=== PATIENT | female | born 1975 | race Caucasian/White ===

== ENCOUNTER 2016-10-13 13:14 | Emergency (ER) | payer OTHER ==
[2016-10-13 13:50] VITALS: BP 119/70; PULSE 79; RESP 20; TEMP 98.7
--- NOTE | 2016-10-13 14:29 | ED ---
General Adult HPI - General Chief complaint: Urogenital Stated complaint: Vaginal Spotting Time Seen by Provider: 10/13/16 14:16 Source: patient, RN notes reviewed Mode of arrival: ambulatory Limitations: no limitations - History of Present Illness Initial comments: Patient 41-year-old female who presents emergency room today with a chief complaint of vaginal discharge with some bleeding mixed in over the last 2 days. She does admit to increased vaginal your dictation. Patient does admit to a new sexual partner and is worried about possible STD. Patient does admit to some slight dysuria today with increased irritation. She denies any other complaints or associated symptoms. Patient denies any recent fever, chills, shortness of breath, chest pain, back pain, nausea or vomiting, numbness or tingling, dysuria or hematuria, constipation or diarrhea, headaches or visual changes, or any other complaints. - Related Data Home Medications Medication Instructions Recorded Confirmed No Known Home Medications [No 10/13/16 10/13/16 Known Home Medications] Allergies Allergy/AdvReac Type Severity Reaction Status Date / Time No Known Allergies Allergy Verified 10/13/16 14:42 Review of Systems ROS Statement: Those systems with pertinent positive or pertinent negative responses have been documented in the HPI. ROS Other: All systems not noted in ROS Statement are negative. Past Medical History Past Medical History: No Reported History History of Any Multi-Drug Resistant Organisms: None Reported Past Surgical History: Orthopedic Surgery Additional Past Surgical History / Comment(s): right ovary removal, rib removal Past Psychological History: No Psychological Hx Reported Smoking Status: Current every day smoker Past Alcohol Use History: Occasional Past Drug Use History: None Reported General Exam - General Exam Comments Initial Comments: General: The patient is awake and alert, in no distress, and does not appear acutely ill. Eye: Pupils are equal, round and reactive to light, extra-ocular movements are intact. No nystagmus. There is normal conjunctiva bilaterally. No signs of icterus. Ears, nose, mouth and throat: There are moist mucous membranes and no oral lesions. Neck: The neck is supple, there is no tenderness or JVD. Cardiovascular: There is a regular rate and rhythm. No murmur, rub or gallop is appreciated. Respiratory: Lungs are clear to auscultation, respirations are non-labored, breath sounds are equal. No wheezes, stridor, rales, or rhonchi. Gastrointestinal: Soft, non-distended, non-tender abdomen without masses or organomegaly noted. There is no rebound or guarding present. No CVA tenderness. Bowel sounds are unremarkable. Musculoskeletal: Normal ROM, no tenderness. Strength 5/5. Sensation intact. Pulses equal bilaterally 2+. Neurological: A&O x 3. CN II-XII intact, There are no obvious motor or sensory deficits. Coordination appears grossly intact. Speech is normal. Skin: Skin is warm and dry and no rashes or lesions are noted. Psychiatric: Cooperative, appropriate mood & affect, normal judgment. Limitations: no limitations External exam: Present: normal external exam (TRANSPORTATION MAINTENANCE OPERATORBRENT Felton present for exam) Speculum exam: Present: normal speculum exam, vaginal bleeding (Small amount of blood on the swabs) By manual exam: Present: normal by manual exam. Absent: cervical motion tenderness, adnexal tenderness, adnexal mass Course Vital Signs 10/13/16 13:47 Temperature 98.7 F Pulse Rate 79 Respiratory 20 Rate Blood Pressure 119/70 O2 Sat by Pulse 100 Oximetry Medical Decision Making - Medical Decision Making Options of prophylactic treatment were discussed with the patient here the emergency room. Patient has declined. Patient will be discharged home. Advised to follow CARPET CLEANING TECHNICIAN. Advised return if any symptoms increase or worsen. - Lab Data Lab Results 10/13/16 10/13/16 10/13/16 Range/Units 14:40 14:40 14:40 Urine Color Yellow Urine Appearance Cloudy H (Clear) Urine pH 7.5 (5.0-8.0) Ur Specific [place] 1.023 (1.001-1.035) Urine Protein Trace H (Negative) Urine Glucose (UA) Negative (Negative) Urine Ketones Negative (Negative) Urine Blood Moderate H (Negative) Urine Nitrate Negative (Negative) Urine Bilirubin Negative (Negative) Urine Urobilinogen 4.0 (<2.0) mg/dL Ur Leukocyte Esterase Large H (Negative) Urine RBC 18 H (0-5) /hpf Urine WBC 4 (0-5) /hpf Ur Squamous Epith Cells 6 H (0-4) /hpf Urine Bacteria Occasional H (None) /hpf Urine Mucus Rare H (None) /hpf Urine HCG, Qual Not Detected (Not Detectd) Trichomonas Ag (Rapid) Negative (Negative) Disposition Clinical Impression: Vaginal discharge Disposition: HOME SELF-CARE Condition: Good Instructions: Vaginal Discharge (ED) Additional Instructions: Please follow-up with CARPET CLEANING TECHNICIAN for symptoms over the next 2-5 days as discussed. Please return here to the emergency room if any symptoms increase or worsen or for any other concerns. Time of Disposition: 15:28
[2016-10-13 15:10] LABS: Appearance,Urine Cloudy (Clear); Bacteria,Urine Occasional /hpf; Bilirubin,Urine Negative (Negative); Glucose,Urine (UA) Negative (Negative); Ketones,Urine Negative (Negative); Leukocyte Esterase,Urine Large (Negative); Mucus,Urine Rare /hpf; Nitrite,Urine Negative (Negative); PH, Urine 7.5 (5.0-8.0); Particle Count 13870; Protein,Urine Trace (Negative); RBC,Urine 18 /hpf (0-5); Specific Gravity,Urine 1.023 (1.001-1.035); Squamous Epithelial Cell,Urine 6 /hpf (0-4); UA Billing (MACRO vs. MICRO) MICRO; WBC,Urine 4 /hpf (0-5)
== END 2016-10-13 15:35 | disposition home or self-care (01) ==
LOC: EC 13:14
DX: N89.8 Other specified noninflammatory disorders of vagina (principal); F17.200 Nicotine dependence, unspecified, uncomplicated
CPT/HCPCS: 81001; 81025; 87070; 87086; 87205; 87491; 87591; 87808; 99283

== ENCOUNTER 2022-01-23 07:42 | Inpatient (IN) | payer MEDICAID, OTHER ==
--- NOTE | 2022-01-23 11:52 | ED ---
Psych HPI - General Chief Complaint: Psychiatric Symptoms Stated Complaint: mental health Time Seen by Provider: 01/23/22 07:42 Source: family, EMS, RN notes reviewed - History of Present Illness Initial Comments: 47-year-old female brought in by EMS today because of abnormal behavior she apparently told family members she felt she was being poisoned 15. Paranoid calling family members she was present in the [place] this apparently started last night. No known prior history of any psychiatric disorders no known consumption of drugs or alcohol. No trauma reported. MD Complaint: other - Related Data Home Medications Medication Instructions Recorded Confirmed No Known Home Medications 10/13/16 01/23/22 Allergies Allergy/AdvReac Type Severity Reaction Status Date / Time No Known Allergies Allergy Verified 01/23/22 11:52 Review of Systems ROS Statement: Those systems with pertinent positive or pertinent negative responses have been documented in the HPI. ROS Other: All systems not noted in ROS Statement are negative. Limitations: ROS unobtainable due to patients medical condition Past Medical History Past Medical History: No Reported History History of Any Multi-Drug Resistant Organisms: None Reported Past Surgical History: Orthopedic Surgery Additional Past Surgical History / Comment(s): right ovary removal, rib removal Past Psychological History: No Psychological Hx Reported Past Alcohol Use History: Occasional Past Drug Use History: None Reported General Exam - General Exam Comments Initial Comments: This is a well-developed well-nourished awake female she is resisting interview and will not answer questions Limitations: altered mental status General appearance: alert, anxious Head exam: Present: atraumatic, normocephalic, normal inspection Eye exam: Present: normal appearance, PERRL, EOMI. Absent: scleral icterus, conjunctival injection, periorbital swelling ENT exam: Present: normal exam Neck exam: Present: normal inspection, full ROM, other (No stridor JVD or bruits) Respiratory exam: Present: normal lung sounds bilaterally. Absent: respiratory distress, wheezes, rales, rhonchi, stridor Cardiovascular Exam: Present: normal rhythm, tachycardia, normal heart sounds. Absent: systolic murmur, diastolic murmur, rubs, gallop, clicks GI/Abdominal exam: Present: soft Extremities exam: Present: normal inspection, full ROM, normal capillary refill. Absent: tenderness, pedal edema, joint swelling, calf tenderness Back exam: Present: normal inspection, full ROM Neurological exam: Present: alert Psychiatric exam: Present: agitated, anxious, other (Psychotic features) Skin exam: Present: warm, dry, intact, normal color. Absent: rash Course Vital Signs 01/23/22 07:47 Pulse Rate 111 H Respiratory 24 Rate Blood Pressure 173/74 O2 Sat by Pulse 100 Oximetry - Reevaluation(s) Reevaluation #1: 01/23/22 12:48 I did fill out a clinical certification on this patient. Medical Decision Making - Medical Decision Making Patient was evaluated by the EPS service labs are drawn and her essentially within normal limits. Patient will be admitted for inpatient evaluation and treatment - Lab Data Result diagrams: 01/23/22 12:42 01/23/22 12:42 Lab Results 01/23/22 01/23/22 Range/Units 12:42 12:42 WBC 7.7 (3.8-10.6) k/uL RBC 4.88 (3.80-5.40) m/uL Hgb 13.9 (11.4-16.0) gm/dL Hct 43.9 (34.0-46.0) % MCV 90.0 (80.0-100.0) fL MCH 28.5 (25.0-35.0) pg MCHC 31.6 (31.0-37.0) g/dL RDW 13.9 (11.5-15.5) % Plt Count 299 (150-450) k/uL MPV 7.4 Neutrophils % 75 % Lymphocytes % 18 % Monocytes % 5 % Eosinophils % 1 % Basophils % 1 % Neutrophils # 5.8 (1.3-7.7) k/uL Lymphocytes # 1.4 (1.0-4.8) k/uL Monocytes # 0.4 (0-1.0) k/uL Eosinophils # 0.1 (0-0.7) k/uL Basophils # 0.1 (0-0.2) k/uL Sodium 141 (137-145) mmol/L Potassium 4.2 (3.5-5.1) mmol/L Chloride 107 (98-107) mmol/L Carbon Dioxide 28 (22-30) mmol/L Anion Gap 6 mmol/L BUN 13 (7-17) mg/dL Creatinine 0.58 (0.52-1.04) mg/dL Est GFR (CKD-EPI)AfAm >90 (>60 ml/min/1.73 sqM) Est GFR (CKD-EPI)NonAf >90 (>60 ml/min/1.73 sqM) Glucose 99 (74-99) mg/dL Calcium 10.3 H (8.4-10.2) mg/dL Total Bilirubin 0.5 (0.2-1.3) mg/dL AST 21 (14-36) U/L ALT 13 (4-34) U/L Alkaline Phosphatase 105 (38-126) U/L Total Protein 7.5 (6.3-8.2) g/dL Albumin 4.3 (3.5-5.0) g/dL Disposition Clinical Impression: Acute psychosis Disposition: TRANSFER TO PSYCH HOSP/UNIT Condition: Stable
[2022-01-23 12:56] LABS: Basophils # (A) 0.1 k/uL (0-0.2); Basophils % (A) 1 %; Eosinophils # (A) 0.1 k/uL (0-0.7); Eosinophils % (A) 1 %; HCT 43.9 % (34.0-46.0); HGB 13.9 gm/dL (11.4-16.0); Lymphocytes # (A) 1.4 k/uL (1.0-4.8); Lymphocytes % (A) 18 %; MCH 28.5 pg (25.0-35.0); MCHC 31.6 g/dL (31.0-37.0); Mean Platelet Volume 7.4; Monocytes # (A) 0.4 k/uL (0-1.0); Monocytes % (A) 5 %; Neutrophils # (A) 5.8 k/uL (1.3-7.7); Neutrophils % (A) 75 %; Platelet Count 299 k/uL (150-450); RBC 4.88 m/uL (3.80-5.40); RDW 13.9 % (11.5-15.5); WBC 7.7 k/uL (3.8-10.6)
[2022-01-23 13:16] LABS: ALT 13 U/L (4-34); AST 21 U/L (14-36); African American GFR (CKD) >90 (>60 ml/min/1.73 sqM); Albumin 4.3 g/dL (3.5-5.0); Alkaline Phosphatase 105 U/L (38-126); Anion Gap 6 mmol/L; Blood Urea Nitrogen 13 mg/dL (7-17); Calcium 10.3 mg/dL (8.4-10.2); Carbon Dioxide 28 mmol/L (22-30); Chloride 107 mmol/L (98-107); Glucose 99 mg/dL (74-99); Non-African American GFR(CKD) >90 (>60 ml/min/1.73 sqM); Potassium 4.2 mmol/L (3.5-5.1); Sodium 141 mmol/L (137-145); Total Bilirubin 0.5 mg/dL (0.2-1.3); Total Protein 7.5 g/dL (6.3-8.2)
[2022-01-23] MEDS ORDERED: MAGNESIUM HYDROXIDE 2,400 MG/10 ML CUP PO PRN (13:19)
[2022-01-23] MEDS ORDERED: MAG HYDROX/AL HYDROX/SIMETH 30 ML CUP PO PRN (13:19)
[2022-01-23] MEDS ORDERED: HALOPERIDOL LACTATE 5 MG/ML 1 ML VIAL IM PRN (13:19)
[2022-01-23] MEDS ORDERED: ACETAMINOPHEN TAB 325 MG TAB PO PRN (13:19)
[2022-01-23] MEDS ORDERED: haloperidoL 5 MG TAB PO PRN (13:22)
[2022-01-23] MEDS ORDERED: LORazepam 2 MG/ML INJ IM PRN (13:22)
[2022-01-23 16:13] LABS: Amphetamine Screen,Urine Not Detected (NotDetected); Barbiturate Screen,Urine Not Detected (NotDetected); Benzodiazepines Screen,Urine Not Detected (NotDetected); Cocaine Screen,Urine Not Detected (NotDetected); Methadone Screen, Urine Not Detected (NotDetected); Opiate Screen,Urine Not Detected (NotDetected); Oxycodone Screen, Urine Not Detected (NotDetected); Phencyclidine Screen,Urine Not Detected (NotDetected); Tricyclic Antidepressant,Urine Not Detected (NotDetected); Urn Cannabinoid Scrn Not Detected (NotDetected)
--- NOTE | 2022-01-23 16:35 | P.MDCNMH ---
History of Present Illness H&P Date: 01/23/22 Chief Complaint: Medical clearance and management 47-year-old woman with no significant past medical history presented for episode of acute psychosis. Medicine was consulted for medical evaluation/clearance to be managed on the mental health floor. Patient has no complaints at this time. She denies fevers, chills, nausea, vomiting, chest pain, palpitations, syncope, presyncopal, cough, dyspnea, abdominal pain, constipation, diarrhea, dysuria, dyschezia, numbness/weakness of extremities. She does report daily smoking history of half a pack per day. She reports occa sional alcohol use. Her CBC, chemistries are reviewed and are unremarkable. Urine tox screen was u nremarkable. There is no imaging to review All Systems reviewed and pertinent positives and negatives noted in HPI, all other symptoms are negative Gen: awake, alert HEENT: normocephalic, atraumatic, good hearing acuity, moist mucous membranes Resp: good air exchange, breathing comfortably with no accessory muscle use CVS: good distal perfusion x 4, GI: soft, NTTP, ND : no SPT, no CVAT, michael catheter not present MSK: no pitting edema, no clubbing Neuro: non-focal, moving all extremities Psych: cooperative, euthymic mood Assessment/plan: Nicotine use -Cessation counseling advised -Offer patient nicotine lozenges or nicotine patch if she develops cravings Hypertension -We'll not start antihypertensives immediately, but rather wait until her anxiety/psychosis issue is under control, then reevaluate blood pressure Anxiety Psychosis -Management per primary team Thank you for this consult. A member of our team is available 25/04, should any questions or concerns arise, please reach out via perfect serve Past Medical History Past Medical History: No Reported History History of Any Multi-Drug Resistant Organisms: None Reported Past Surgical History: Orthopedic Surgery Additional Past Surgical History / Comment(s): right ovary removal, rib removal Past Psychological History: No Psychological Hx Reported Past Alcohol Use History: Occasional Past Drug Use History: None Reported Medications and Allergies Home Medications Medication Instructions Recorded Confirmed Type No Known Home Medications 10/13/16 01/23/22 History Allergies Allergy/AdvReac Type Severity Reaction Status Date / Time No Known Allergies Allergy Verified 01/23/22 11:52 Physical Exam Osteopathic Statement: *. No significant issues noted on an osteopathic structural exam other than those noted in the History and Physical/Consult. Vitals: Vital Signs Pulse Resp BP Pulse Ox 01/23/22 07:47 111 H 24 173/74 100 Intake and Output 01/23/22 01/23/22 01/23/22 06:59 14:59 22:59 Other: Weight 61.235 kg Cranial Nerve Examination - Cranial Nerves Cranial Nerve II- Optic: Intact Cranial Nerve III- Oculomotor: Intact Cranial Nerve IV- Trochlear: Intact Cranial Nerve V- Trigeminal: Intact Cranial Nerve - Abducens: Intact Cranial Nerve VII- Facial: Intact Cranial Nerve VIII- Auditory: Intact Cranial Nerve IX- Glossopharyngeal: Intact Cranial Nerve X- Vagus: Intact Cranial Nerve XI- Accessory: Intact Cranial Nerve XII- Hypoglossal: Intact Results CBC & Chem 7: 01/23/22 12:42 01/23/22 12:42 Labs: Abnormal Lab Results - Last 24 Hours (Table) 01/23/22 Range/Units 12:42 Calcium 10.3 H (8.4-10.2) mg/dL
[2022-01-24] MEDS ORDERED: NICOTINE 14MG/24HR PATCH TRANSDERM SCH (09:00)
[2022-01-24 11:54] LABS: Chol/HDL Ratio 2.55 Ratio
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
[2022-01-24] MEDS ORDERED: QUEtiapine 50 MG TAB PO SCH (21:00)
[2022-01-25] MEDS ORDERED: NICOTINE GUM (POLACRILEX) 2 MG GUM BUCCAL PRN (12:00)
--- NOTE | 2022-01-25 12:00 | P.PN ---
Progress Note - Text Progress Note Date: 01/25/22 Interval History: Patient was seen wandering the hallways and was directable and agreeable to speak with staff writer in the office. Patient was rambling at times during the interview however was fairly directable. She spoke about having a "meltdown" before coming in the hospital. She states that she has a daughter that has been "all over the place" and signed her into the hospital for evaluation. She states that she may have a diagnosis of bipolar. She did state that her head was "not clear" before coming in the hospital. She states that Seroquel has been helping. She states that she was able to sleep fairly last night. She claims that her appetite has been fair. She states that she may have been "delusional and paranoid" however is not endorsing that at this time. Her main complaint today was anxiety. At this time patient denies any suicidal or homical ideations, intent or plan. Patient denies any auditory, visual hallucinations and denies any paranoia or delusions. Patient denies any side effects from the medications and has been compliant with meds. Mental Status Exam: General Appearance: Patient appears to be thin, blonde hair, stated age is alert, directable, and attempts to be cooperative. Behavior: Patient is calmly seated without any agitated behavior. Directable. Speech: Patient's speech is fluent and nonpressured. Rambling at times. Mood/Affect: Mood is improving mildly, affect is congruent and constricted. Suicidality/Homicidality: Patient denies having any suicidal or homicidal ideation intent or plan. Perceptions: Patient denies any visual hallucinations and denies any auditory hallucinations Though content/process: There is no evidence of any delusional thought content and thought process is linear and goal-directed. Rambling and tangential at times. Not endorsing any paranoia. Memory and concentration: AOX3, grossly intact for the purposes of this session Judgment and insight: Improving mildly Assessment Bipolar disorder, with psychotic features Cocaine use disorder Nicotine dependence Plan: -Patient continues to meet criteria for inpatient psychiatric admission for symptom stabilization and safety. Patient has signed medication consent and was placed in patient's chart. The patient is currently involuntary and awaiting court hearing date and deferral. -Medications: Increase Seroquel to 75 mg daily at bedtime for mood stabilization/psychosis, Zoloft started at 25 mg daily for mood/anxiety. -When necessary Ativan and Haldol for agitation/aggression. -NRT - nicotine gum -SW on board for discharge planning. Encouraged the patient to participate in milieu. Currently awaiting deferral with trademark attorney and court date.
[2022-01-25] MEDS ORDERED: SERTRALINE 25 MG TAB ONE (13:39)
[2022-01-25] MEDS: SERTRALINE 25 MG TAB PO SCH (13:40)
[2022-01-25] MEDS ORDERED: QUEtiapine 25 MG TAB PO SCH (21:00)
[2022-01-26] MEDS: SERTRALINE 25 MG TAB PO SCH (08:40)
--- NOTE | 2022-01-26 10:04 | P.PN ---
Progress Note - Text Progress Note Date: 01/26/22 Interval History: Patient was seen wandering the hallways and was directable and agreeable to sp huong with specifications writer in the office. Patient appeared to be more directable today during the interview. She claims that she is doing better with the Seroquel however did find that she awoke a couple of times last night. She was okay with having it increased to 100 mg at nighttime. Patient states that her mood is more stable and she is feeling less anxious. She states that she took the Zoloft and "it didn't agree with me" and was fairly vague about the interaction that she had with it. She claims that she wants to have it discontinued. She states that she signed the deferral yesterday with the prosecuting attorney and is agreeable to continue with treatment however states that she does not like medications overall. She claims that her appetite has been fair. Patient continues to have some impulse control issues however this has been improving. She is not endorsing any paranoia or delusions at this time. At this time patient denies any suicidal or homical ideations, intent or plan. Patient denies any auditory, visual hallucinations and denies any paranoia or delusions. Patient denies any side effects from the medications and has been compliant with meds. Mental Status Exam: General Appearance: Patient appears to be thin, blonde hair, stated age is alert, directable, and attempts to be cooperative. Behavior: Patient is calmly seated without any agitated behavior. more Directable today. Speech: Patient's speech is fluent and nonpressured. Mood/Affect: Mood is improving mildly, affect is congruent and constricted. Suicidality/Homicidality: Patient denies having any suicidal or homicidal ideation intent or plan. Perceptions: Patient denies any visual hallucinations and denies any auditory hallucinations Though content/process: There is no evidence of any delusional thought content and thought process is linear and goal-directed. Not endorsing any paranoia. Memory and concentration: AOX3, grossly intact for the purposes of this session Judgment and insight: Chronically poor, Improving mildly Assessment Bipolar disorder, with psychotic features Cocaine use disorder Nicotine dependence Plan: -Patient continues to meet criteria for inpatient psychiatric admission for symptom stabilization and safety. Patient has signed medication consent and was placed in patient's chart. The patient is currently involuntary and awaiting court hearing date and deferral. -Medications: Increase Seroquel to 100 mg daily at bedtime for mood stabilization/psychosis. d/c zoloft due to side effects and intolerability. -When necessary Ativan and Haldol for agitation/aggression. -NRT - nicotine gum -SW on board for discharge planning. Encouraged the patient to participate in milieu. Patient deferred and is agreeable to continue on with treatment. likely discharge tomorrow if patient continues to improve
--- NOTE | 2022-01-26 18:37 | P.MHFACE ---
Face to Face Restrain/Seclus - Evaluation Patient's Immediate Situation: Endangers others' safety, Endangers staff safety, Violent behavior Patient's Immediate Situation - Comment: Banging on the windows threatening staff, demanding discharge, using violent and provocative language, emotionally labile. Patient's Reaction to the Intervention: Uncooperative, Angry, Hostile, Belligerent, Aggressive, Combative Patient's Medical & Behavioral Condition: Awake, Alert, Agitated Need to Continue or Terminate Restraint or Seclusion: Continue Face to Face Eval of Restraint Date: 01/26/22 Face to Face Eval of Restraint Time: 18:30
[2022-01-26] MEDS ORDERED: QUEtiapine 100 MG TAB PO SCH (21:00)
[2022-01-27 07:20] VITALS: RESP 16
--- NOTE | 2022-01-27 10:34 | P.PN ---
Progress Note - Text Progress Note Date: 01/27/22 Interval History: Patient was seen wandering the hallways and was directable and agreeable to sp eak with technical proposal writer in the office. Patient today appeared to be more demanding and irritable with technical proposal writer. She was endorsing signifcant paranoia and beleives "the world is going down" and also spoke about multiple people out to harm her. She appeared to have poor impusle control and frustration toelrance. She was focused on discharge, claims that she does not need medications and does not want to take any more medications. She states "its my choice and you cant control me". She had an incident last night was agitated and aggressive. She required prn meds and restraints yesterday. At this time patient denies any suicidal or homical ideations, intent or plan. Patient denies any auditory, visual hallucinations. Patient denies any side effects from the medications and has been compliant with meds. Mental Status Exam: General Appearance: Patient appears to be thin, blonde hair, stated age is alert, difficult to redirect, irritable and hostile. Behavior: Patient is calmly seated without any agitated behavior. demanding. paranoid. Speech: Patient's speech is fluent and nonpressured. Mood/Affect: Mood is "not good", affect is congruent Suicidality/Homicidality: Patient denies having any suicidal or homicidal ideation intent or plan. Perceptions: Patient denies any visual hallucinations and denies any auditory hallucinations Though content/process: Patient was paranoid, delusional and agitated. She was focused on discharge. Poor reality testing. Memory and concentration: AOX3, grossly intact for the purposes of this session Judgment and insight: Chronically poor Assessment Bipolar disorder, with psychotic features Cocaine use disorder Nicotine dependence Plan: -Patient continues to meet criteria for inpatient psychiatric admission for symptom stabilization and safety. Patient has signed medication consent and was placed in patient's chart. -Medications: Discontinue Seroquel. Start patient on paliperidone by mouth 3 mg daily at bedtime for mood stabilization/psychosis. Plan will be to transition patient onto long-acting injection. -When necessary Ativan and Haldol for agitation/aggression. -NRT - nicotine gum -SW on board for discharge planning. Encouraged the patient to participate in milieu. Patient deferred with her environmental attorney however due to patient's increased agitation and refusing to engage with treatment and take medications, will file for demand for hearing today.
[2022-01-27] MEDS ORDERED: PALIPERIDONE 3 MG TAB.ER.24 PO SCH (21:00)
[2022-01-28] MEDS: LORazepam 1 MG TAB PO PRN (02:29)
[2022-01-28] MEDS ORDERED: traZODone HCL 50 MG TAB PO PRN (10:02)
--- NOTE | 2022-01-28 10:36 | P.PN ---
Progress Note - Text Progress Note Date: 01/28/22 Interval History: Patient was seen wandering the hallways and was directable and agreeable to sp eak with marketing copywriter in the office. Patient claims that she feels a bit better today. She appeared to be more directable and appropriate with marketing copywriter today. She claims that she ended up taking the medication last night which had helped her however states that she could not sleep. She states that she really wants to go out and have a cigarette. She continues to be focused on discharge. She was not endorsing paranoia today and was not irritable and agitated with marketing copywriter. She claims that she only goes to some groups however was fairly vague on what she is learning. We spoke about the court process and filing the demand for hearing yesterday and patient states that she may waive and stip. We also spoke about the potential to transition patient onto long-acting injections and patient believes that this may be a good idea as she forgets to take her medications. At this time patient denies any suicidal or homical ideations, intent or plan. Patient denies any auditory, visual hallucinations. Patient denies any side effects from the medications and has been compliant with meds. Mental Status Exam: General Appearance: Patient appears to be thin, blonde hair, stated age is alert, or directable today. Attempts to cooperate. Behavior: Patient is calmly seated without any agitated behavior. Not endorsing paranoia today. Speech: Patient's speech is fluent and nonpressured. Mood/Affect: Mood is "a bit better", affect is congruent and constricted Suicidality/Homicidality: Patient denies having any suicidal or homicidal ideation intent or plan. Perceptions: Patient denies any visual hallucinations and denies any auditory hallucinations Though content/process: Not endorsing paranoia. More goal oriented. She was focused on discharge. Memory and concentration: AOX3, grossly intact for the purposes of this session Judgment and insight: Chronically poor, improving mildly Assessment Bipolar disorder, with psychotic features Cocaine use disorder Nicotine dependence Plan: -Patient continues to meet criteria for inpatient psychiatric admission for symptom stabilization and safety. Patient has signed medication consent and was placed in patient's chart. -Medications: Increased paliperidone by mouth 6 mg daily at bedtime for mood stabilization/psychosis. Plan will be to transition patient onto long-acting injection. added trazodone 50 mg qhs prn for sleep. -When necessary Ativan and Haldol for agitation/aggression. -NRT - nicotine gum -SW on board for discharge planning. Encouraged the patient to participate in milieu. Patient deferred with her employment attorney however due to patient's increased agitation and refusing to engage with treatment and take medications a demand for hearing was filed yesterday. currently awaiting demand date. Patient states that she may want to sign waive and stip.
[2022-01-28] MEDS: PALIPERIDONE 6 MG TAB.ER.24 PO SCH (20:10)
--- NOTE | 2022-01-29 10:21 | P.PN ---
Progress Note - Text Progress Note Date: 01/29/22 nterval History: Patient was seen wandering the hallways and was directable and agreeable to spe ak with marketing underwriter in the office. Patient claims that she feels a bit better today and is not endorsing any paranoia. She states that she does feel grogginess in the morning however claims that she did not sleep well last night. She states that after she took the trazodone and it took her "a little while" to go to sleep. She states that she continues to be agreeable to continue with treatment and is tolerating the medications fairly well. She appears to have an improvement in her insight and judgment today. She states that she is not feeling any paranoia today and was not irritable with marketing underwriter. She thanked marketing underwriter for his help. She claims that her appetite is fair. At this time patient denies any suicidal or homical ideations, intent or plan. Patient denies any auditory, visual hallucinations. Patient denies any side effects from the medications and has been compliant with meds. Mental Status Exam: General Appearance: Patient appears to be thin, blonde hair, stated age is alert, or directable today. Attempts to cooperate. Behavior: Patient is calmly seated without any agitated behavior. Not endorsing paranoia today. Speech: Patient's speech is fluent and nonpressured. Mood/Affect: Mood is "better", affect is congruent and constricted Suicidality/Homicidality: Patient denies having any suicidal or homicidal ideation intent or plan. Perceptions: Patient denies any visual hallucinations and denies any auditory hallucinations Though content/process: Not endorsing paranoia. More goal oriented. She was focused on discharge. Memory and concentration: AOX3, grossly intact for the purposes of this session Judgment and insight: Chronically poor, improving mildly Assessment Bipolar disorder, with psychotic features Cocaine use disorder Nicotine dependence Plan: -Patient continues to meet criteria for inpatient psychiatric admission for symptom stabilization and safety. Patient has signed medication consent and was placed in patient's chart. -Medications: paliperidone by mouth 6 mg daily at bedtime for mood stabilization/psychosis. Plan will be to transition patient onto long-acting injection most likely tuesday. increase trazodone 100 mg qhs prn for sleep. -When necessary Ativan and Haldol for agitation/aggression. -NRT - nicotine gum -SW on board for discharge planning. Encouraged the patient to participate in milieu. Patient deferred with her timber repairer however due to patient's increased agitation and refusing to engage with treatment and take medications a demand was filed. Patient states that she may want to sign waive and stip. likely discharge either tuesday vs tuesday next week
[2022-01-29] MEDS: LORazepam 1 MG TAB PO PRN (14:40)
[2022-01-29] MEDS: PALIPERIDONE 6 MG TAB.ER.24 PO SCH (20:51)
[2022-01-29] MEDS: traZODone HCL 100 MG TAB PO SCH (20:51)
--- NOTE | 2022-01-30 09:39 | P.PN ---
Subjective Progress Note Date: 01/30/22 Principal diagnosis: Bipolar disorder with psychotic features Cocaine use disorder Nicotine dependence Subjective data: I feel that I may be going through some menopausal changes People think that I may be lazy but my body is getting old, see how it cracks I will be going back to my cousins to stay with I was staying back and forth with my daughter where they're using drugs to living with some friends went there was no water I hope to do better My suicide attempts were more like a cry for help Objective data: Patient is casually dressed and groomed Patient is friendly and cooperative. Patient also was very helpful when I spilled coffee while trying to juggle with the coffee and the papers Speech was clear and coherent and relevant Thought processes are goal-directed sequential and logical Formal and operational judgment appears to have improved Patient however continues to minimize her substance use issues Patient continues to rationalize and intellectualize Plan: Continue current can support Patient continues to meet the criteria for inpatient psychiatric hospitalization for stabilization and safety Patient is currently on paliperidone 6 mg daily at bedtime and has not experienced or complaining of any side effects disabilities services officer on board for discharge planning Robel Villalta M.D. 01/30/2022 Objective - Vital Signs Vital signs: Vital Signs Temp 96.7 F L 01/30/22 04:25 Pulse 92 01/30/22 04:25 Resp 16 01/30/22 04:25 BP 101/66 01/30/22 04:25 Pulse Ox 99 01/29/22 06:41 - Labs CBC & Chem 7: 01/23/22 12:42 01/23/22 12:42
[2022-01-30] MEDS: traZODone HCL 100 MG TAB PO SCH (20:07)
[2022-01-30] MEDS: PALIPERIDONE 6 MG TAB.ER.24 PO SCH (20:07)
[2022-01-30] MEDS: LORazepam 1 MG TAB PO PRN (21:40)
[2022-01-31] MEDS: LORazepam 1 MG TAB PO PRN (09:15)
--- NOTE | 2022-01-31 10:23 | P.PN ---
Subjective Progress Note Date: 01/31/22 Principal diagnosis: Bipolar disorder with psychotic features Cocaine use disorder Nicotine dependence Subjective data: I feel that I am making good progress I feel that my cousins will be more supportive and then I want to spend more time with my grandchildren I will be going back to my cousins to stay with I was staying back and forth with my daughter where they're using drugs to living with some friends went there was no water I hope to do better Objective data: Patient has just stepped out of the shower and states that she feels a lot better Patient is friendly and cooperative. Speech was clear and coherent and relevant Thought processes are goal-directed sequential and logical Formal and operational judgment appears to have improved Patient however continues to minimize her substance use issues Patient continues to rationalize and intellectualize Plan: Continue current can support Patient continues to meet the criteria for inpatient psychiatric hospitalization for stabilization and safety Patient is currently on paliperidone 6 mg daily at bedtime and has not experienced or complaining of any side effects banking services officer on board for discharge planning Robel Villalta M.D. 01/31/2022 Objective - Vital Signs Vital signs: Vital Signs Temp 96.7 F L 01/30/22 04:25 Pulse 86 01/31/22 09:16 Resp 16 01/30/22 04:25 BP 126/76 01/31/22 09:16 Pulse Ox 99 01/29/22 06:41 Intake & Output 01/30/22 01/31/22 01/31/22 18:59 06:59 18:59 Weight 68.1 kg - Labs CBC & Chem 7: 01/23/22 12:42 01/23/22 12:42
[2022-01-31] MEDS: traZODone HCL 100 MG TAB PO SCH (21:18)
[2022-01-31] MEDS: PALIPERIDONE 6 MG TAB.ER.24 PO SCH (21:18)
[2022-02-01 06:45] VITALS: BP 129/85; PULSE 88; TEMP 97.8
--- NOTE | 2022-02-01 10:17 | P.DS ---
Providers Date of admission: 01/23/22 13:14 Expected date of discharge: 02/01/22 Attending physician: Dorian Peterson MD Consults: 01/23/22 13:19 Consult Physician Routine Consulting Provider: Will Glez Consult Reason/Comments: Medical H&P Do you want consulting provider notified?: Yes Primary care physician: Stated None - Discharge Diagnosis(es) (1) Bipolar disorder with psychotic features Current Visit: Yes Status: Acute Priority: High (2) Cocaine use disorder Current Visit: Yes Status: Acute Priority: Medium (3) Nicotine dependence Current Visit: Yes Status: Acute Priority: Low Hospital Course: Admission HPI: Admission note was completed by Dr Cano "Patient is a 47-year-old female admitted to [facility] on a petition and cert for acute psychosis. Per the petition completed by her daughter Camila Chandler, told her daughter that "she felt like she was being poisoned. She acted like she was possessed and keep taking one of the kids and saying he was the president of the [place]. The kids told me she was starting to act funny the night before. She wrote this on a piece of paper "Right ma". For the clinical CERT completed in the ER, the patient was "pacing all night, nonverbal to staff but told family that she is being poisoned and telling family he is the president of the [place]." She was impulsive and reportedly tried to run out of the ambulance. Per the EPS evaluation in the ER, patient was brought in inpatient petition by her daughter for bizarre behaviors. Patient tried to elope from the ER twice today and has been her talking to herself in her room. Patient also urinated all over her bed. Patient was observed to be very guarded in giving minimal responses. She reported her other daughter 30 years ago and "I never really grieved it". Pt admits to talking out loud to her daughter and "people think I'm crazy but I talk to her all the time." Labs reviewed and an unremarkable. test negative. On my assessment, patient is labile, at times rambling and at times guarded. She firmly believes she does not need to be hospitalized but also calls herself "crazy" multiple times. She admits to believing the child was the candle molder and [employer] because "someone" was telling her this but she becomes upset when asked who. She makes multiple references to 06/13 being all around her. She is states she has been going thought the "grieving process" of her daughter that about 30 years ago in infancy. Thought process is disorganized, often jumping from topic to topic. She reports she is "having premonitions of 06/13... and how about the President poisoning... [place], I don't know if I'm going...hospital is a pile of shit, I'm just getting angry.... I want to leave and I want to go home. There's nothing wrong with me. Nobody starts to listen to me I'm going to go crazy...." She reports having "anxiety really bad. I don't need the medication. I just need people to listen to me. I have anxiety, I'm going through menopause. I am almost 48 years old. I just want people to listen to me, but people think I'm nuts." She reports her mood is frustrated. Patient denies suicidal ideations, plan or intent. She denies homicidal ideations. Patient denies any visual hallucinations and denies any auditory hallucinations, but talks about someone telling her that the child is the candle molder. Thoughts are laced with paranoid ideations and delusions about not trusting people. She becomes frustrated due to not being allowed to go home today and abruptly leaves the room. " Hospital course: Upon admission to the unit patient was admitted involuntarily on a petition and certificate and a second certificate was completed and faxed with the courts. Patient ended up signing a deferral with the privacy attorney and agreeing to treatment. However patient then began refusing treatment after signing the deferral and a demand for hearing was filed. Patient is however agreeable to sign the wave and stip today with her privacy attorney on day of discharge. Patient got along well with other patients on the unit and followed unit protocol. Patient was compliant with the medications and denied any side effects throughout hospital course. Patient was started on paliperidone by mouth and titrated up to dose of 6 mg daily at bedtime for mood stabilization/psychosis, trazodone 150 mg daily at bedtime for insomnia/mood. Patient spoke of her stressors and engaged in thera py both group and individual. Patient was also seen by medical team for history and physical exam. Throughout the course of the hospitalization patient gradually improved with regards to mood, anxiety, psychosis/paranoia, sleep and became more future oriented with improved insight and judgment. On the day of discharge patient denied any suicidal or homicidal ideations intent or plan denied any auditory or visual hallucinations. Patient endorsed wanting to live for her health and her future. The patient denied any access to guns or weapons. Patient denied any paranoia and did not endorse any delusions. Patient does have a significant history of substance abuse and was counseled on abstaining from all substances including alcohol and marijuana. Patient was offered however declined inpatient substance-abuse rehab. Patient was also counseled on the medications and need for regular compliance and was encouraged to follow-up with their outpatient appointment for mental health and also for primary care. Prior to discharge a family meeting will be arranged by social media community manager to answer any questions and ensure safety upon discharge. Patient will be discharged to her cousin's house today after she signs the wave and stip. Mental status exam: General Appearance: Patient appears to be stated age is alert, pleasant, and cooperative. Patient is in no acute distress and has improved hygiene and grooming Behavior: Patient is calmly seated without any agitated behavior. Speech: Patient's speech is fluent and nonpressured. Mood/Affect: Patient reports their mood is "good", affect is congruent and euthymic. Suicidality/Homicidality: Patient denies having any suicidal or homicidal ideation intent or plan. Perceptions: Patient denies any auditory or visual hallucinations. Though content/process: There is no evidence of any delusional thought content and thought process is linear and goal-directed. more future oriented Memory and concentration: AOX3, grossly intact for the purposes of this session. Can spell "WORLD" backwards correctly. Judgment and insight: chronically poor, however has improved with guarded prognosis Impression: Bipolar disorder, with psychotic features Cocaine use disorder Nicotine dependence Plan: -Continue with discharge today as patient has improved and stabilized psychiatrically and is not currently an imminent threat to herself and/or oth ers. Patient will remain at chronically elevated risk for harm to self and/or others due to her impulsivity and substance abuse. -Continue medications: Paliperidone by mouth 6 mg daily at bedtime for psychosis/mood stabilization, trazodone 150 mg daily at bedtime for insomnia/mood. -Patient was counseled on the need for medication compliance and appropriate follow-up at mental health and also primary care for medical issues. Patient verbalized understanding and agreed. -Social work to arrange for and conduct family meeting to ensure safety upon discharge and answer any questions/concerns. Social work also to arrange for patients follow up appointments with [facility] for psychiatric care along with follow up with primary care provider. -Patient counseled on abstaining from recreational drugs and marijuana and alcohol. Was informed/educated on the adverse effects on their physical and mental health. Patient verbally agreed and understood. Patient was offered substance abuse treatment however declined at this time. -Patient was instructed to return to the hospital or seek immediate medical care if their psychiatric or medical symptoms do worsen or reoccur. Allergies Allergy/AdvReac Type Severity Reaction Status Date / Time No Known Allergies Allergy Verified 01/23/22 21:30 Laboratory Results WBC 7.7 k/uL (3.8-10.6) 01/23/22 12:42 RBC 4.88 m/uL (3.80-5.40) 01/23/22 12:42 Hgb 13.9 gm/dL (11.4-16.0) 01/23/22 12:42 Hct 43.9 % (34.0-46.0) 01/23/22 12:42 MCV 90.0 fL (80.0-100.0) 01/23/22 12:42 MCH 28.5 pg (25.0-35.0) 01/23/22 12:42 MCHC 31.6 g/dL (31.0-37.0) 01/23/22 12:42 RDW 13.9 % (11.5-15.5) 01/23/22 12:42 Plt Count 299 k/uL (150-450) 01/23/22 12:42 MPV 7.4 01/23/22 12:42 Neutrophils % 75 % 01/23/22 12:42 Lymphocytes % 18 % 01/23/22 12:42 Monocytes % 5 % 01/23/22 12:42 Eosinophils % 1 % 01/23/22 12:42 Basophils % 1 % 01/23/22 12:42 Neutrophils # 5.8 k/uL (1.3-7.7) 01/23/22 12:42 Lymphocytes # 1.4 k/uL (1.0-4.8) 01/23/22 12:42 Monocytes # 0.4 k/uL (0-1.0) 01/23/22 12:42 Eosinophils # 0.1 k/uL (0-0.7) 01/23/22 12:42 Basophils # 0.1 k/uL (0-0.2) 01/23/22 12:42 Sodium 141 mmol/L (137-145) 01/23/22 12:42 Potassium 4.2 mmol/L (3.5-5.1) 01/23/22 12:42 Chloride 107 mmol/L (98-107) 01/23/22 12:42 Carbon Dioxide 28 mmol/L (22-30) 01/23/22 12:42 Anion Gap 6 mmol/L 01/23/22 12:42 BUN 13 mg/dL (7-17) 01/23/22 12:42 Creatinine 0.58 mg/dL (0.52-1.04) 01/23/22 12:42 Est GFR (CKD-EPI)AfAm >90 (>60 ml/min/1.73 sqM) 01/23/22 12:42 Est GFR (CKD-EPI)NonAf >90 (>60 ml/min/1.73 sqM) 01/23/22 12:42 Glucose 99 mg/dL (74-99) 01/23/22 12:[address] Glu mg/dL 120 01/23/22 12:42 Hemoglobin A1c 5.8 % (0.0-6.0) 01/23/22 12:42 Calcium 10.3 mg/dL (8.4-10.2) H 01/23/22 12:42 Total Bilirubin 0.5 mg/dL (0.2-1.3) 01/23/22 12:42 AST 21 U/L (14-36) 01/23/22 12:42 ALT 13 U/L (4-34) 01/23/22 12:42 Alkaline Phosphatase 105 U/L (38-126) 01/23/22 12:42 Total Protein 7.5 g/dL (6.3-8.2) 01/23/22 12:42 Albumin 4.3 g/dL (3.5-5.0) 01/23/22 12:42 Triglycerides 52.00 mg/dL (0.00-149.00) 01/23/22 12:42 Cholesterol 198.00 mg/dL (0.00-200.00) 01/23/22 12:42 LDL Cholesterol, Calc 110.0 mg/dL (0.0-131.0) 01/23/22 12:42 VLDL Cholesterol, Calc 10.40 mg/dL (5.00-40.00) 01/23/22 12:42 HDL Cholesterol 77.60 mg/dL (40.00-60.00) H 01/23/22 12:42 Cholesterol/HDL Ratio 2.55 Ratio 01/23/22 12:42 TSH 0.592 mIU/L (0.465-4.680) 01/23/22 12:42 Urine HCG, Qual Not Detected (Not Detectd) 01/23/22 15:35 Urine Opiates Screen Not Detected (NotDetected) 01/23/22 15:35 Ur Oxycodone Screen Not Detected (NotDetected) 01/23/22 15:35 Urine Methadone Screen Not Detected (NotDetected) 01/23/22 15:35 Ur Propoxyphene Screen Not Detected (NotDetected) 01/23/22 15:35 Ur Barbiturates Screen Not Detected (NotDetected) 01/23/22 15:35 U Tricyclic Antidepress Not Detected (NotDetected) 01/23/22 15:35 Ur Phencyclidine Scrn Not Detected (NotDetected) 01/23/22 15:35 Ur Amphetamines Screen Not Detected (NotDetected) 01/23/22 15:35 U Methamphetamines Scrn Not Detected (NotDetected) 01/23/22 15:35 U Benzodiazepines Scrn Not Detected (NotDetected) 01/23/22 15:35 Urine Cocaine Screen Not Detected (NotDetected) 01/23/22 15:35 U Marijuana (THC) Screen Not Detected (NotDetected) 01/23/22 15:35 Coronavirus (PCR) Not Detected (Not Detectd) 01/23/22 Unknown Vital Signs Temp 97.8 F 02/01/22 06:44 Pulse 88 02/01/22 06:44 Resp 16 02/01/22 06:44 BP 129/85 02/01/22 06:44 Pulse Ox 97 02/01/22 06:44 Intake & Output 01/31/22 02/01/22 02/01/22 18:59 06:59 18:59 Weight 68.1 kg Patient Condition at Discharge: Stable Plan - Discharge Summary Discharge Rx Participant: No New Discharge Prescriptions: New Nicotine Gum (Polacrilex) [Nicorette] 2 mg BUCCAL Q4HR PRN 28 Days PRN Reason: Nicotine Cravings traZODone HCL 150 mg PO HS 30 Days tablet Paliperidone [Invega] 6 mg PO HS 30 Days Discharge Medication List Nicotine Gum (Polacrilex) [Nicorette] 2 mg BUCCAL Q4HR PRN 28 Days 02/01/22 [Rx] Paliperidone [Invega] 6 mg PO HS 30 Days 02/01/22 [Rx] traZODone HCL 150 mg PO HS 30 Days tablet 02/01/22 [Rx] Follow up Appointment(s)/Referral(s): None,Stated [Primary Care Provider] - 1-2 days Activity/Diet/Wound Care/Special Instructions: Activity and diet as tolerated. Avoid the use of street drugs and alcohol. Take all medications as prescribed. When you are in need of refills on your medications please contact your medical provider and/or outpatient psychiatrist to have this done. Please go to scheduled outpatient appointment for aftercare treatment. If symptoms return or become worse, call the crisis line at and/or go to the nearest emergency room for evaluation Discharge Disposition: HOME SELF-CARE
== END 2022-02-01 13:48 | disposition home or self-care (01) | DRG 885 ==
LOC: EC 07:42 → 3MHU 13:14
PROVIDERS: ADMIT Psychiatry & Neurology Psychiatry; ATTEND Psychiatry & Neurology Psychiatry
DX: F31.9 Bipolar disorder, unspecified (principal); F23 Brief psychotic disorder; F14.90 Cocaine use, unspecified, uncomplicated; F17.210 Nicotine dependence, cigarettes, uncomplicated; F41.9 Anxiety disorder, unspecified; F60.0 Paranoid personality disorder; G47.00 Insomnia, unspecified; Z56.0 Unemployment, unspecified; Z59.00 Homelessness unspecified; Z79.899 Other long term (current) drug therapy; Z91.51 Personal history of suicidal behavior; Z96.649 Presence of unspecified artificial hip joint
CPT/HCPCS: 36415; 80053; 80061; 80306; 81025; 82075; 83036; 84443; 85025; 87635; 99285

== ENCOUNTER 2022-02-11 12:29 | Emergency (ER) | payer OTHER ==
[2022-02-11 12:39] VITALS: TEMP 98.8
--- NOTE | 2022-02-11 13:49 | ED ---
General Adult HPI - General Chief complaint: Alcohol Stated complaint: Mental health eval Time Seen by Provider: 02/11/22 12:34 Source: police, EMS Mode of arrival: EMS - History of Present Illness Initial comments: Dictation was produced using ditlo dictation software. please excuse any grammatical, word or spelling errors. Chief Complaint: 47-year-old female presents to the emergency department for psychiatric evaluation History of Present Illness: She is 47-year-old female she was brought in by law enforcement. Patient was apprehended because she was walking around in public drinking beer and drank beer cans at the road and neck cars. Patient has history of psychiatric illness. Patient is a poor historian. According to chart review patient has history of bipolar disorder and has been admitted for psychosis recently. Patient denies any suicidal or homicidal ideation. She states she has no medical complaints at this time. Patient reports that no way believe served that her daughter is trying to kill her. The ROS documented in this emergency department record has been reviewed and confirmed by me. Those systems with pertinent positive or negative responses have been documented in the HPI. All other systems are other negative and/or noncontributory. PHYSICAL EXAM: General Impression: Alert and oriented x3, not in acute distress HEENT: Normocephalic atraumatic, extra-ocular movements intact, pupils equal and reactive to light bilaterally, mucous membranes moist. Cardiovascular: Heart regular rate and rhythm Chest: Able to complete full sentences, no retractions, no tachypnea Abdomen: abdomen soft, non-tender, non-distended, no organomegaly Musculoskeletal: Pulses present and equal in all extremities, no peripheral edema Motor: no focal deficits noted Neurological: CN II-XII grossly intact, no focal motor or sensory deficits noted Skin: Intact with no visualized rashes Psych: Normal affect and mood ED course: 47-year-old male presents to the emergency department for psychiatric evaluation. Patient according to chart review has a history of bipolar disease. She was recently admitted and discharged from inpatient psych. Signs upon arrival are within acceptable limits. Physical examination is benign. Laboratory evaluation obtained. CBC, coag panel, white count is unremarkable. Serum alcohol is negative. Patient observed in emergency department for approximately 2 hours. Patient medically cleared for EPS evaluation. Patient was evaluated by EPS recommended discharge with outpatient plan. EKG interpretation: Ventricular rate 93, sinus rhythm,. 132, QS 95, QTc 387. No TX prolongation, no QTC prolongation, no ST or T-wave changes noted. Overall, this EKG is unremarkable - Related Data Previous Rx's Medication Instructions Recorded Nicotine Gum (Polacrilex) 2 mg BUCCAL Q4HR PRN 28 Days 02/01/22 [Nicorette] Paliperidone [Invega] 6 mg PO HS 30 Days 02/01/22 traZODone HCL 150 mg PO HS 30 Days tablet 02/01/22 Allergies Allergy/AdvReac Type Severity Reaction Status Date / Time No Known Allergies Allergy Verified 02/11/22 13:50 Review of Systems ROS Statement: Those systems with pertinent positive or pertinent negative responses have been documented in the HPI. ROS Other: All systems not noted in ROS Statement are negative. Past Medical History Past Medical History: No Reported History History of Any Multi-Drug Resistant Organisms: None Reported Past Surgical History: Orthopedic Surgery Additional Past Surgical History / Comment(s): right ovary removal, rib removal Past Anesthesia/Blood Transfusion Reactions: No Reported Reaction Past Psychological History: No Psychological Hx Reported Smoking Status: Current every day smoker Past Alcohol Use History: Daily Past Drug Use History: Methamphetamine Course Vital Signs 02/11/22 12:32 Temperature 98.8 F Pulse Rate 104 H Respiratory 18 Rate Blood Pressure 145/90 O2 Sat by Pulse 96 Oximetry Medical Decision Making - Lab Data Result diagrams: 02/11/22 13:29 02/11/22 13:29 Lab Results 02/11/22 02/11/22 02/11/22 Range/Units 13:29 13:29 13:29 WBC 8.7 (3.8-10.6) k/uL RBC 4.75 (3.80-5.40) m/uL Hgb 13.6 (11.4-16.0) gm/dL Hct 43.5 (34.0-46.0) % MCV 91.7 (80.0-100.0) fL MCH 28.7 (25.0-35.0) pg MCHC 31.3 (31.0-37.0) g/dL RDW 13.7 (11.5-15.5) % Plt Count 341 (150-450) k/uL MPV 7.5 Neutrophils % 66 % Lymphocytes % 25 % Monocytes % 6 % Eosinophils % 1 % Basophils % 1 % Neutrophils # 5.7 (1.3-7.7) k/uL Lymphocytes # 2.2 (1.0-4.8) k/uL Monocytes # 0.5 (0-1.0) k/uL Eosinophils # 0.1 (0-0.7) k/uL Basophils # 0.1 (0-0.2) k/uL PT 10.4 (9.0-12.0) sec INR 0.9 (<1.2) APTT 27.6 (22.0-30.0) sec Sodium 142 (137-145) mmol/L Potassium 4.1 (3.5-5.1) mmol/L Chloride 106 (98-107) mmol/L Carbon Dioxide 27 (22-30) mmol/L Anion Gap 9 mmol/L BUN 13 (7-17) mg/dL Creatinine 0.71 (0.52-1.04) mg/dL Est GFR (CKD-EPI)AfAm >90 (>60 ml/min/1.73 sqM) Est GFR (CKD-EPI)NonAf >90 (>60 ml/min/1.73 sqM) Glucose 104 H (74-99) mg/dL Plasma Lactic Acid Hao (0.7-2.0) mmol/L Calcium 10.7 H (8.4-10.2) mg/dL Magnesium 2.0 (1.6-2.3) mg/dL Creatine Kinase 874 H (30-135) U/L Urine Opiates Screen (NotDetected) Ur Oxycodone Screen (NotDetected) Urine Methadone Screen (NotDetected) Ur Propoxyphene Screen (NotDetected) Ur Barbiturates Screen (NotDetected) U Tricyclic Antidepress (NotDetected) Ur Phencyclidine Scrn (NotDetected) Ur Amphetamines Screen (NotDetected) U Methamphetamines Scrn (NotDetected) U Benzodiazepines Scrn (NotDetected) Urine Cocaine Screen (NotDetected) U Marijuana (THC) Screen (NotDetected) Serum Alcohol <10 mg/dL 02/11/22 02/11/22 Range/Units 13:29 15:27 WBC (3.8-10.6) k/uL RBC (3.80-5.40) m/uL Hgb (11.4-16.0) gm/dL Hct (34.0-46.0) % MCV (80.0-100.0) fL MCH (25.0-35.0) pg MCHC (31.0-37.0) g/dL RDW (11.5-15.5) % Plt Count (150-450) k/uL MPV Neutrophils % % Lymphocytes % % Monocytes % % Eosinophils % % Basophils % % Neutrophils # (1.3-7.7) k/uL Lymphocytes # (1.0-4.8) k/uL Monocytes # (0-1.0) k/uL Eosinophils # (0-0.7) k/uL Basophils # (0-0.2) k/uL PT (9.0-12.0) sec INR (<1.2) APTT (22.0-30.0) sec Sodium (137-145) mmol/L Potassium (3.5-5.1) mmol/L Chloride (98-107) mmol/L Carbon Dioxide (22-30) mmol/L Anion Gap mmol/L BUN (7-17) mg/dL Creatinine (0.52-1.04) mg/dL Est GFR (CKD-EPI)AfAm (>60 ml/min/1.73 sqM) Est GFR (CKD-EPI)NonAf (>60 ml/min/1.73 sqM) Glucose (74-99) mg/dL Plasma Lactic Acid Hao 1.1 (0.7-2.0) mmol/L Calcium (8.4-10.2) mg/dL Magnesium (1.6-2.3) mg/dL Creatine Kinase (30-135) U/L Urine Opiates Screen Not Detected (NotDetected) Ur Oxycodone Screen Not Detected (NotDetected) Urine Methadone Screen Not Detected (NotDetected) Ur Propoxyphene Screen Not Detected (NotDetected) Ur Barbiturates Screen Not Detected (NotDetected) U Tricyclic Antidepress Not Detected (NotDetected) Ur Phencyclidine Scrn Not Detected (NotDetected) Ur Amphetamines Screen Detected H (NotDetected) U Methamphetamines Scrn Detected H (NotDetected) U Benzodiazepines Scrn Not Detected (NotDetected) Urine Cocaine Screen Not Detected (NotDetected) U Marijuana (THC) Screen Not Detected (NotDetected) Serum Alcohol mg/dL Disposition Clinical Impression: Bipolar disorder Disposition: HOME SELF-CARE Condition: Fair Is patient prescribed a controlled substance at d/c from ED?: No Referrals: None,Stated [Primary Care Provider] - 1-2 days
[2022-02-11 13:54] VITALS: BP 145/90; PULSE 104; RESP 18
[2022-02-11 13:54] LABS: Basophils # (A) 0.1 k/uL (0-0.2); Basophils % (A) 1 %; Eosinophils # (A) 0.1 k/uL (0-0.7); Eosinophils % (A) 1 %; HCT 43.5 % (34.0-46.0); HGB 13.6 gm/dL (11.4-16.0); Lymphocytes # (A) 2.2 k/uL (1.0-4.8); Lymphocytes % (A) 25 %; MCH 28.7 pg (25.0-35.0); MCHC 31.3 g/dL (31.0-37.0); MCV 91.7 fL (80.0-100.0); Mean Platelet Volume 7.5; Monocytes # (A) 0.5 k/uL (0-1.0); Monocytes % (A) 6 %; Neutrophils # (A) 5.7 k/uL (1.3-7.7); Neutrophils % (A) 66 %; Platelet Count 341 k/uL (150-450); RBC 4.75 m/uL (3.80-5.40); RDW 13.7 % (11.5-15.5); WBC 8.7 k/uL (3.8-10.6)
[2022-02-11 14:06] LABS: African American GFR (CKD) >90 (>60 ml/min/1.73 sqM); Alcohol <10 mg/dL; Anion Gap 9 mmol/L; Blood Urea Nitrogen 13 mg/dL (7-17); Calcium 10.7 mg/dL (8.4-10.2); Carbon Dioxide 27 mmol/L (22-30); Chloride 106 mmol/L (98-107); Creatine Kinase 874 U/L (30-135); Glucose 104 mg/dL (74-99); Non-African American GFR(CKD) >90 (>60 ml/min/1.73 sqM); Potassium 4.1 mmol/L (3.5-5.1); Sodium 142 mmol/L (137-145)
[2022-02-11 14:14] LABS: INR 0.9 (<1.2); Prothrombin Time 10.4 sec (9.0-12.0)
[2022-02-11 14:15] LABS: Partial Thromboplastin Time 27.6 sec (22.0-30.0)
[2022-02-11] MEDS ORDERED: LORazepam 2 MG/ML INJ IV STA (14:48)
[2022-02-11 15:45] LABS: Amphetamine Screen,Urine Detected (NotDetected); Barbiturate Screen,Urine Not Detected (NotDetected); Benzodiazepines Screen,Urine Not Detected (NotDetected); Cocaine Screen,Urine Not Detected (NotDetected); Methadone Screen, Urine Not Detected (NotDetected); Opiate Screen,Urine Not Detected (NotDetected); Oxycodone Screen, Urine Not Detected (NotDetected); Phencyclidine Screen,Urine Not Detected (NotDetected); Tricyclic Antidepressant,Urine Not Detected (NotDetected); Urn Cannabinoid Scrn Not Detected (NotDetected)
== END 2022-02-11 19:21 | disposition home or self-care (01) ==
LOC: EC 12:29
DX: F31.9 Bipolar disorder, unspecified (principal); F17.200 Nicotine dependence, unspecified, uncomplicated; Z65.3 Problems related to other legal circumstances
CPT/HCPCS: 36415; 93005; 80048; 82550; 83605; 83735; 85025; 85610; 85730; 80306; 99284; 96374; G0480; J2060; 80320

== ENCOUNTER 2022-02-13 15:44 | Inpatient (IN) | payer MEDICAID, OTHER ==
--- NOTE | 2022-02-13 16:57 | ED ---
Psych HPI - General Chief Complaint: Psychiatric Symptoms Stated Complaint: Mental health Time Seen by Provider: 02/13/22 16:43 Source: patient, police, RN notes reviewed, old records reviewed Mode of arrival: ambulatory - History of Present Illness Initial Comments: 47 year-old female history of psychosis who is brought in by care department for evaluation on a pickup order. Patient has been not sleeping and pacing not taken her medications she's been talking to herself she believes that she is Tiffanie Mercer. She was evaluated 2 days ago and has been admitted recently with a diagnosis of psychosis. Please see all the accompanying paperwork. I did review the screen performed as well as the pickup order petition Complaint: other - Related Data Previous Rx's Medication Instructions Recorded Nicotine Gum (Polacrilex) 2 mg BUCCAL Q4HR PRN 28 Days 02/01/22 [Nicorette] Paliperidone [Invega] 6 mg PO HS 30 Days 02/01/22 traZODone HCL 150 mg PO HS 30 Days tablet 02/01/22 Allergies Allergy/AdvReac Type Severity Reaction Status Date / Time No Known Allergies Allergy Verified 02/13/22 16:15 Review of Systems ROS Statement: Those systems with pertinent positive or pertinent negative responses have been documented in the HPI. ROS Other: All systems not noted in ROS Statement are negative. Past Medical History Past Medical History: No Reported History History of Any Multi-Drug Resistant Organisms: None Reported Past Surgical History: Orthopedic Surgery Additional Past Surgical History / Comment(s): right ovary removal, rib removal Past Anesthesia/Blood Transfusion Reactions: No Reported Reaction Past Psychological History: No Psychological Hx Reported Smoking Status: Current every day smoker Past Alcohol Use History: Daily Past Drug Use History: Methamphetamine General Exam - General Exam Comments Initial Comments: This is a well-developed well-nourished awake alert female Limitations: altered mental status General appearance: alert, in no apparent distress Head exam: Present: atraumatic, normocephalic, normal inspection Eye exam: Present: normal appearance, PERRL, EOMI. Absent: scleral icterus, conjunctival injection, periorbital swelling ENT exam: Present: normal exam, mucous membranes moist Neck exam: Present: normal inspection. Absent: tenderness, meningismus, lymphadenopathy Respiratory exam: Present: normal lung sounds bilaterally. Absent: respiratory distress, wheezes, rales, rhonchi, stridor Cardiovascular Exam: Present: regular rate, normal rhythm, normal heart sounds. Absent: systolic murmur, diastolic murmur, rubs, gallop, clicks GI/Abdominal exam: Present: soft, normal bowel sounds. Absent: distended, tenderness, guarding, rebound, rigid Extremities exam: Present: normal inspection, full ROM, normal capillary refill. Absent: tenderness, pedal edema, joint swelling, calf tenderness Back exam: Present: normal inspection Neurological exam: Present: alert, oriented X3, CN II-XII intact Psychiatric exam: Present: flat affect Skin exam: Present: warm, dry, intact, normal color. Absent: rash Course Vital Signs 02/13/22 16:12 Temperature 98.3 F Pulse Rate 58 L Respiratory 18 Rate Blood Pressure 131/83 O2 Sat by Pulse 100 Oximetry - Reevaluation(s) Reevaluation #1: 02/13/22 16:57 I did fill out a physician clinical certificate. Patient will be admitted for inpatient evaluation and treatment Disposition Clinical Impression: Acute psychosis, Non-compliance Disposition: TRANSFER TO PSYCH HOSP/UNIT Condition: Stable Referrals: Pietro Cullen DO [Primary Care Provider] - 1-2 days Decision Date: 02/13/22 Decision Time: 16:58
[2022-02-13 17:07] LABS: HCT 40.8 % (34.0-46.0); HGB 12.6 gm/dL (11.4-16.0); MCH 28.1 pg (25.0-35.0); MCV 90.6 fL (80.0-100.0); Mean Platelet Volume 7.4; Platelet Count 343 k/uL (150-450); RDW 13.9 % (11.5-15.5); WBC 7.2 k/uL (3.8-10.6)
[2022-02-13 17:15] LABS: ALT 23 U/L (4-34); AST 34 U/L (14-36); African American GFR (CKD) >90 (>60 ml/min/1.73 sqM); Albumin 4.7 g/dL (3.5-5.0); Alkaline Phosphatase 84 U/L (38-126); Anion Gap 7 mmol/L; Blood Urea Nitrogen 20 mg/dL (7-17); Calcium 10.7 mg/dL (8.4-10.2); Carbon Dioxide 26 mmol/L (22-30); Chloride 109 mmol/L (98-107); Glucose 89 mg/dL (74-99); Non-African American GFR(CKD) >90 (>60 ml/min/1.73 sqM); Potassium 4.7 mmol/L (3.5-5.1); Sodium 142 mmol/L (137-145); Total Bilirubin 0.6 mg/dL (0.2-1.3); Total Protein 7.8 g/dL (6.3-8.2)
[2022-02-13] MEDS ORDERED: MAG HYDROX/AL HYDROX/SIMETH 30 ML CUP PO PRN (17:44)
[2022-02-13] MEDS ORDERED: HALOPERIDOL LACTATE 5 MG/ML 1 ML VIAL IM PRN (17:44)
[2022-02-13] MEDS ORDERED: ACETAMINOPHEN TAB 325 MG TAB PO PRN (17:44)
[2022-02-13] MEDS ORDERED: MAGNESIUM HYDROXIDE 2,400 MG/10 ML CUP PO PRN (17:44)
[2022-02-13] MEDS ORDERED: haloperidoL 5 MG TAB PO PRN (18:29)
[2022-02-13] MEDS ORDERED: LORazepam 2 MG/ML INJ IM PRN ×2 (18:30→21:19)
[2022-02-13] MEDS ORDERED: ZIPRASIDONE 20 MG VIAL IM PRN (21:16)
[2022-02-14] MEDS: LORazepam 1 MG TAB PO PRN (05:37)
--- NOTE | 2022-02-14 08:24 | P.HP ---
Psychiatric H&P - . H&P Date: 02/14/22 History & Physical: Allergies Allergy/AdvReac Type Severity Reaction Status Date / Time No Known Allergies Allergy Verified 02/13/22 18:27 Vital Signs Temp 97.8 F 02/13/22 18:13 Pulse 69 02/13/22 18:13 Resp 16 02/13/22 18:13 BP 117/65 02/13/22 18:13 Pulse Ox 100 02/13/22 18:13 Intake & Output 02/13/22 02/14/22 02/14/22 18:59 06:59 18:59 Weight 68.039 kg Laboratory Last Values WBC 7.2 k/uL (3.8-10.6) 02/13/22 16:45 RBC 4.50 m/uL (3.80-5.40) 02/13/22 16:45 Hgb 12.6 gm/dL (11.4-16.0) 02/13/22 16:45 Hct 40.8 % (34.0-46.0) 02/13/22 16:45 MCV 90.6 fL (80.0-100.0) 02/13/22 16:45 MCH 28.1 pg (25.0-35.0) 02/13/22 16:45 MCHC 31.0 g/dL (31.0-37.0) 02/13/22 16:45 RDW 13.9 % (11.5-15.5) 02/13/22 16:45 Plt Count 343 k/uL (150-450) 02/13/22 16:45 MPV 7.4 02/13/22 16:45 Sodium 142 mmol/L (137-145) 02/13/22 16:45 Potassium 4.7 mmol/L (3.5-5.1) 02/13/22 16:45 Chloride 109 mmol/L (98-107) H 02/13/22 16:45 Carbon Dioxide 26 mmol/L (22-30) 02/13/22 16:45 Anion Gap 7 mmol/L 02/13/22 16:45 BUN 20 mg/dL (7-17) H 02/13/22 16:45 Creatinine 0.65 mg/dL (0.52-1.04) 02/13/22 16:45 Est GFR (CKD-EPI)AfAm >90 (>60 ml/min/1.73 sqM) 02/13/22 16:45 Est GFR (CKD-EPI)NonAf >90 (>60 ml/min/1.73 sqM) 02/13/22 16:45 Glucose 89 mg/dL (74-99) 02/13/22 16:45 Calcium 10.7 mg/dL (8.4-10.2) H 02/13/22 16:45 Total Bilirubin 0.6 mg/dL (0.2-1.3) 02/13/22 16:45 AST 34 U/L (14-36) 02/13/22 16:45 ALT 23 U/L (4-34) 02/13/22 16:45 Alkaline Phosphatase 84 U/L (38-126) 02/13/22 16:45 Total Protein 7.8 g/dL (6.3-8.2) 02/13/22 16:45 Albumin 4.7 g/dL (3.5-5.0) 02/13/22 16:45 TSH 0.645 mIU/L (0.465-4.680) 02/13/22 16:45 Coronavirus (PCR) Not Detected (Not Detectd) 02/13/22 16:45 02/14/22 08:17 This is a psychiatric evaluation on macy choudhury who is a 47-year-old female and was just discharged from this unit in the last week The patient presents here with her daughter with increased delusional thinking flight of ideas agitation and aggression and impulsivity Patient admits to using methamphetamine since discharge When seen today patient gives flippant answers that she was having problems at home with her daughter where there are not doing things that were proper like taking care of the children in the home She says that she plans to now go back with her and live with him When asked as to why she did not do it earlier she said that she was being controlled by her daughter Patient remains unreliable historian and appears to be flighty with delusional thinking and looseness of associations Past history personal social history: could not be dealt with in detail at the present time due to patient's current mental status Patient's last medications at the time of discharge were inVega 6 mg at nighttime and trazodone 150 mg at bedtime No other collateral information is available at this time Mental status examination: Reveals a middle-aged female who presents a disheveled appearance Patient was sleeping but was easily arousable Affect at this time seems to be flat Thought processes seem to be disorganized with flight of ideas Patient's formal and operational judgment appears to be impaired Decision-making capacity is poor Insight into her problem is poor Diagnostic impression: Psychotic disorder unspecified bipolar disorder by history Methamphetamine use disorder unspecified Plan: The patient currently meets the criteria for hospitalization to improve her stability and coping skills Patient will also participate in on the [place] activities individual and milieu and group therapies We will restart the patient on inVega and trazodone as prescribed Patient was quite agitated the previous night and had required when necessary lorazepam and Geodon for agitation before she was able to calm down and be able to sleep Approximate the stay would be 5-7 days litigation services manager will be involved to address discharge issues and placement issues Robel Villalta M.D. 02/14/2022
[2022-02-14] MEDS: PALIPERIDONE 6 MG TAB.ER.24 PO SCH (08:26)
[2022-02-14 10:16] LABS: Chol/HDL Ratio 2.28 Ratio; LDL Cholesterol,Calculated 77.9 mg/dL (0.0-131.0); VLDL Calculation 15.18 mg/dL (5.00-40.00)
[2022-02-14] MEDS: traZODone HCL 50 MG TAB PO SCH (20:38)
[2022-02-15] MEDS: PALIPERIDONE 6 MG TAB.ER.24 PO SCH (08:43)
--- NOTE | 2022-02-15 10:16 | P.PN ---
Progress Note - Text Progress Note Date: 02/15/22 Interval History: Patient was seen taking part in group today and was directable and agreeable to speak with script writer in the office. Patient appears to be disheveled in appearance. She was rambling at times and speaking illogically. She spoke about trying to break into "the [place]" which is located here in town and states that she states that she heard voices telling her to do so. She claims that she was not taking her medications and refused her paliperidone this morning. She believes that she does not need medications. She claims that methamphetamine was the only drug that helped her. She has very poor insight and judgment. She claims that "I won't reveal my family secrets" and made other bizarre comments to script writer. She was fairly argumentative today. She is requesting to speak to a data security administrator. At this time patient denies any suicidal or homical ideations, intent or plan. Patient denies any auditory, visual hallucinations. Mental Status Exam: General Appearance: [Patient appears to be thin, disheveled in appearance, older than stated age is alert, argumentative] Behavior: [Patient is calmly seated without any agitated behavior.] Argumentative and uncooperative. Speech: Patient's speech is fluent and nonpressured. Mood/Affect: Mood is "fine" affect is incongruent and constricted. Suicidality/Homicidality: Patient denies having any suicidal or homicidal ideation intent or plan. Perceptions: Patient denies any visual hallucinations [and denies any auditory hallucinations] Though content/process: Patient rambles, is tangential/circumstantial. Loose associations. Delusional. Bizarre statements. Memory and concentration: AOX3, grossly intact for the purposes of this session Judgment and insight: Chronically poor Assessment Acute psychosis Methamphetamine use disorder nicotine dependence Plan: -Patient continues to meet criteria for inpatient psychiatric admission for symptom stabilization and safety. Patient has [not] signed [adult voluntary form and] [medication consent] and was placed in patient's chart. -Medications: Paliperidone by mouth 6 mg daily at bedtime for psychosis. Trazodone 150 mg daily at bedtime for insomnia. -When necessary Ativan and Haldol for agitation/aggression. -NRT -nicotine patch -SW on board for discharge planning. Encouraged the patient to participate in milieu. Will file demand for hearing today as patient is non compliant with treatment and refusing medications.
[2022-02-15] MEDS ORDERED: OLANZapine 10 MG VIAL IM PRN (11:02)
--- NOTE | 2022-02-15 13:15 | P.CONS ---
History of Present Illness - History of Present Illness This is a pleasant 47 his old female with no significant past medical history. Presents with signs of symptoms of psychosis. Medical consult was requested for routine medical management. She told me she does not want to, but her daughter met her comfort. When I asked her if she has went to someone's house she doesn't know, she answers yes she went to a [facility] in [facility] which is related to the [place]. Patient currently denies any chest pain or dyspnea. No abdominal pain. No nausea vomiting or diarrhea. No urinary complaints. No fever. She is hemodynamically stable. Labs reviewed, CBC and BMP and liver enzymes are unremarkable. Cholesterol is acceptable with LDL 77.9 and TSH 0.6 which is normal. Coronavirus not detected. She also smokes cigarettes and drinks alcohol but she did not specify. Review of Systems Review of systems CONSTITUTIONAL: No fever, no malaise, no fatigue. HEENT: No recent visual problems or hearing problems. Denied any sore throat. CARDIOVASCULAR: No orthopnea, PND, no palpitations, no syncope. PULMONARY: No shortness of breath, no cough, no hemoptysis. GASTROINTESTINAL: No diarrhea, no nausea, no vomiting, no abdominal pain. Normoactive bowel sounds. NEUROLOGICAL: No headaches, no weakness, no numbness. HEMATOLOGICAL: Denies any bleeding or petechiae. GENITOURINARY: Denies any burning micturition, frequency, or urgency. MUSCULOSKELETAL/RHEUMATOLOGICAL: Denies any joint pain, swelling, or any muscle pain. ENDOCRINE: Denies any polyuria or polydipsia. Past Medical History Past Medical History: No Reported History History of Any Multi-Drug Resistant Organisms: None Reported Past Surgical History: Orthopedic Surgery Additional Past Surgical History / Comment(s): right ovary removal, rib removal Past Anesthesia/Blood Transfusion Reactions: No Reported Reaction Past Psychological History: No Psychological Hx Reported Additional Psychological History / Comment(s): Per daughter pt has been admitted to an inpatient mental health unit in the past and was here at [facility] prior to 2008. Per daughter the patient also has had 3 suicide attempts Smoking Status: Current every day smoker Past Alcohol Use History: Daily Past Drug Use History: Methamphetamine Medications and Allergies Home Medications Medication Instructions Recorded Confirmed Type Nicotine Gum (Polacrilex) 2 mg BUCCAL Q4HR PRN 28 Days 02/01/22 02/13/22 Rx [Nicorette] Paliperidone [Invega] 6 mg PO HS 30 Days 02/01/22 02/13/22 Rx traZODone HCL 150 mg PO HS 30 Days tablet 02/01/22 02/13/22 Rx Allergies Allergy/AdvReac Type Severity Reaction Status Date / Time No Known Allergies Allergy Verified 02/13/22 18:27 Physical Exam Vitals: Vital Signs Temp Pulse Pulse Resp BP BP Pulse Ox 02/13/22 18:13 97.8 F 69 16 117/65 100 02/13/22 16:12 98.3 F 58 L 18 131/83 100 Intake and Output 02/13/22 02/14/22 02/14/22 22:59 06:59 14:59 Other: Weight 68.039 kg 65.635 kg GENERAL: The patient is alert and oriented x3, not in any acute distress. Well developed, well nourished. HEENT: Pupils are round and equally reacting to light. EOMI. No scleral icterus. No conjunctival pallor. Normocephalic, atraumatic. No pharyngeal erythema. No thyromegaly. CARDIOVASCULAR: S1 and S2 present. No murmurs, rubs, or gallops. PULMONARY: Chest is clear to auscultation, no wheezing or crackles. ABDOMEN: Soft, nontender, nondistended, normoactive bowel sounds. No palpable organomegaly. MUSCULOSKELETAL: No joint swelling or deformity. EXTREMITIES: No cyanosis, clubbing, or pedal edema. NEUROLOGICAL: Gross neurological examination did not reveal any focal deficits. SKIN: No rashes. no petechiae. Results CBC & Chem 7: 02/13/22 16:45 02/13/22 16:45 Labs: Abnormal Lab Results - Last 24 Hours (Table) 02/13/22 02/13/22 Range/Units 16:45 16:45 Chloride 109 H (98-107) mmol/L BUN 20 H (7-17) mg/dL Calcium 10.7 H (8.4-10.2) mg/dL HDL Cholesterol 72.90 H (40.00-60.00) mg/dL Assessment and Plan Assessment: -Psychosis another psychotic illnesses, management as per mental health team -Nicotine dependence, patient consult. Denies nicotine patch -Alcohol dependence, continue with thiamine She is low risk for DVT We recommend patient follow up with PCP in one week after discharge and she was instructed with the same Thank you for consulting us
[2022-02-15] MEDS: THIAMINE 100 MG TAB PO SCH (15:48)
[2022-02-15] MEDS: PALIPERIDONE 3 MG TAB.ER.24 PO SCH (20:51)
[2022-02-15] MEDS: traZODone HCL 50 MG TAB PO SCH (20:52)
[2022-02-16] MEDS: THIAMINE 100 MG TAB PO SCH (07:47)
[2022-02-16] MEDS ORDERED: OLANZapine 10 MG VIAL IM PRN (09:29)
--- NOTE | 2022-02-16 09:35 | P.PN ---
Progress Note - Text Progress Note Date: 02/16/22 Interval History: Patient was seen wandering the hallways today today and was directable and agr eeable to speak with web content writer in the office. Patient continues to appear to be disheveled in appearance. She continues to be illogical and her thought process and has loose associations. She continues to speak about the "secrets in this community" and also within her family. She claims that she will do whatever she can to protect them. She also claims that patient's rights and her own are being violated on this unit in claims that "I won't stand for it". She continues to say bizarre statements and grossly delusional. She continues to minimize her psychiatric symptoms and demand to be discharged. She states that she wants to "smoke a cigarette and eat home-cooked meals". She continues to endorse poor sleep and was pacing last night. She took the paliperidone last night. We spoke about her court order. She has very poor insight and judgment. At this time patient denies any suicidal or homical ideations, intent or plan. Patient denies any auditory, visual hallucinations. Mental Status Exam: General Appearance: Patient appears to be thin, disheveled in appearance, older than stated age is alert, argumentative. Bizarre. Behavior: Patient is calmly seated without any agitated behavior. Argumentative and uncooperative. Speech: Patient's speech is fluent and nonpressured. Mood/Affect: Mood is "fine" affect is incongruent and constricted. Suicidality/Homicidality: Patient denies having any suicidal or homicidal ideation intent or plan. Perceptions: Patient denies any visual hallucinations and denies any auditory hallucinations Though content/process: Patient rambles, is tangential/circumstantial. Loose associations. Delusional. Bizarre statements. Memory and concentration: AOX3, grossly intact for the purposes of this session Judgment and insight: Chronically poor Assessment Acute psychosis Methamphetamine use disorder nicotine dependence Plan: -Patient continues to meet criteria for inpatient psychiatric admission for symptom stabilization and safety. Patient has not signed adult voluntary form and medication consent and was placed in patient's chart. -Medications: increase Paliperidone by mouth 3 mg daily + 6 mg daily at bedtime for psychosis. Trazodone 150 mg daily at bedtime for insomnia. -When necessary Ativan and Haldol for agitation/aggression. -NRT -nicotine patch -SW on board for discharge planning. Encouraged the patient to participate in milieu. Patient is already on an active court order for treatment. She is continuing to refuse to rehab.
[2022-02-16] MEDS: PALIPERIDONE 3 MG TAB.ER.24 PO SCH ×2 (09:40→20:54)
[2022-02-16] MEDS: LORazepam 1 MG TAB PO PRN (15:45)
[2022-02-16] MEDS: traZODone HCL 50 MG TAB PO SCH (20:58)
--- NOTE | 2022-02-17 08:40 | P.PN ---
Progress Note - Text Progress Note Date: 02/17/22 Interval History: Patient was seen wandering the hallways today today and was directable and agr eeable to speak with science writer in the office. She continues to ramble, has loose associations and is delusional. She beleives that another patient is "helping take care of my family because they need all the help they can get". She continues to be labile and illogical. She was laughing inappropriately at times during the interview. She continues to have very poor insight and judgment. She states that she slept better last night. She continues to say bizarre statements and grossly delusional. We spoke about her court order. She has very poor insight and judgment. At this time patient denies any suicidal or homical ideations, intent or plan. Patient denies any auditory, visual hallucinations. Mental Status Exam: General Appearance: Patient appears to be thin, disheveled in appearance, older than stated age is alert, argumentative. Bizarre. Behavior: Patient is calmly seated without any agitated behavior. Argumentative and uncooperative. laughing innappropiriately Speech: Patient's speech is fluent and nonpressured. Mood/Affect: Mood is "not good" affect is incongruent and constricted. Suicidality/Homicidality: Patient denies having any suicidal or homicidal ideation intent or plan. Perceptions: Patient denies any visual hallucinations and denies any auditory hallucinations Though content/process: Patient rambles, is tangential/circumstantial. Loose associations. Delusional. Bizarre statements. religiously preoccupied. Memory and concentration: AOX3, grossly intact for the purposes of this session Judgment and insight: Chronically poor Assessment Acute psychosis Methamphetamine use disorder nicotine dependence Plan: -Patient continues to meet criteria for inpatient psychiatric admission for symptom stabilization and safety. Patient has not signed adult voluntary form and medication consent and was placed in patient's chart. -Medications: increase Paliperidone by mouth 6 mg BID for psychosis. Trazodone 150 mg daily at bedtime for insomnia. If patient continues to not clear psychiatrically, consider switching to FGA with COTTER afterwards before discharge -When necessary Ativan and Haldol for agitation/aggression. -NRT -nicotine patch -SW on board for discharge planning. Encouraged the patient to participate in milieu. Patient is already on an active court order for treatment. She is continuing to refuse to rehab. patient will need to be transitioned onto [facility] to discharge
[2022-02-17] MEDS: PALIPERIDONE 3 MG TAB.ER.24 PO SCH ×2 (09:18→20:49)
[2022-02-17] MEDS: THIAMINE 100 MG TAB PO SCH (09:18)
[2022-02-17] MEDS: traZODone HCL 50 MG TAB PO SCH (20:49)
[2022-02-18] MEDS: THIAMINE 100 MG TAB PO SCH (08:37)
[2022-02-18] MEDS: PALIPERIDONE 6 MG TAB.ER.24 PO SCH (08:37)
--- NOTE | 2022-02-18 14:52 | P.PN ---
Progress Note - Text Progress Note Date: 02/18/22 Clinical Problems: Unspecified psychosis disorder, rule out amphetamine induced psychotic disorder, rule out bipolar disorder manic with psychotic features, methamphetamine use disorder severe, tobacco use Interim history: I reviewed the medical record, interviewed the patient and discussed the treatment and treatment plan with the treatment team. The patient gave a disjointed explanation recent for this hospitalization. She talked about [place]" which she later described as a "house like the [place] but not the [place]." Apparently she is really entered another person's home and was subsequently arrested. During her incarceration she was disorganized, agitated, impulsive and aggressive. She minimizes severity of substance abuse use. She is attending therapeutic groups and activities. She slept 6 hours last night. She denied side effects to her current psychotropic medications -Invega and Desyrel. Mental status exam: She presented as a thin middle-aged female casually dressed. She made eye contact and appeared to attend to interview. She had no prominent physical abnormalities. She had a labile facial expression and cried intermittently during the interview. She is alert and oriented to person and place. She was restless and agitated or aggressive. His speech was spontaneous with increased rate and volume. Her affect was markedly labile throughout the interview. She did not express suicidal ideation or wishes. She ruminated about the circumstances that led to this hospitalization but did not express clear paranoid ideation. Her thinking was grossly disorganized, concrete and at times illogical. She denied hallucinations and did not appear to be responding to internal stimuli. Assessment: She is moderately mentally ill thought disorganization and marked mood lability. Plan: Continue inpatient treatment. Safety precautions. Continue Invega 6 mg twice a day and Desyrel 150 mg at bedtime. Haldol, olanzapine and/or lorazepam for agitation, aggression acute psychosis. [facility] is a [facility] and [facility] after completion of her psychiatric treatment. Encouraged continued participation in therapeutic groups and activities. Evaluate clinical status and response to treatment daily basis.
[2022-02-18] MEDS: PALIPERIDONE 3 MG TAB.ER.24 PO SCH (21:19)
[2022-02-18] MEDS: traZODone HCL 50 MG TAB PO SCH (21:20)
[2022-02-19] MEDS: LORazepam 1 MG TAB PO PRN (00:04)
[2022-02-19] MEDS: PALIPERIDONE 6 MG TAB.ER.24 PO SCH (09:10)
[2022-02-19] MEDS: THIAMINE 100 MG TAB PO SCH (09:10)
--- NOTE | 2022-02-19 14:08 | P.PN ---
Progress Note - Text Progress Note Date: 02/19/22 Clinical Problems: Unspecified psychosis disorder, rule out amphetamine induced psychotic disorder, rule out bipolar disorder manic with psychotic features, methamphetamine use disorder severe, tobacco use Interim history: I reviewed the medical record, interviewed the patient and discussed the treatment and treatment plan with the treatment team. She requested discharge so that she could have a cigarette-"I've been smoking since I was 8 years old denied a cigarette.". We discussed her legal status and she appeared to be aware that she has on [facility] hold and under a mental health treatment order. However, she minimizes severity of the legal problems and attributes them to a "misunderstanding." She denied that she has a mental illness or needs treatment with psychotropic medications. She plans to appeal her mental health order to a metal pattern maker after she is released from the hospital. She specifically sees no reason for treatment with psychotropic medication. I explained the nature of a mental health order including the need to comply with prescribed medications as well as to keep mental health appointments. She refused the paliperidone and on last night but took the morning dose. I reviewed the treatment orders with nursing and explained that olanzapine was ordered to be administered IM if she refuses oral dose of haloperidol. Mental status exam: She presented as a thin casually groomed 47-year-old female who was wearing a hospital gown. She made eye contact and appeared to attend to the interview. She had labile facial expression. She was slightly restless but not agitated or impulsive. Her speech was spontaneous and at times had increase in rate and rhythm. Her affect was labile and fluctuated during our encounter from euphoria to tearfulness. She denied suicidal ideation, wishes or homicidal ideation. She expressed feelings of helplessness regarding her hospitalization and "forced" psychiatric treatment but denied feeling hopeless or worthless. She did not express clear ideas reference but the time. He appeared paranoid and talked about a conspiracy to force her to have mental health treatment. Her thinking was abstract and associations weren't times loose and poorly organized. She denied hallucinations didn't appear to be responding to internal stimuli. Assessment: She has no insight or understanding of her illness and is refusing to take prescribed medications. Plan: Continue inpatient treatment. Safety precautions. Continue paliperidone 6 mg twice a day. Administer olanzapine 5 mg IM if she refuses the oral dose of paliperidone. Change order or trazodone 250 mg at bedtime when necessary for sleep. Transition to Invega sustained prior to discharge. Haldol and/or Ativan when necessary for agitation, aggression acute psychosis. Encouraged continued participation in therapeutic groups and activities. Evaluate clinical status response to treatment daily basis.
[2022-02-19] MEDS: PALIPERIDONE 3 MG TAB.ER.24 PO SCH (20:09)
[2022-02-20] MEDS: LORazepam 1 MG TAB PO PRN ×2 (00:20→14:01)
[2022-02-20] MEDS: PALIPERIDONE 6 MG TAB.ER.24 PO SCH (09:27)
[2022-02-20] MEDS: THIAMINE 100 MG TAB PO SCH (09:28)
--- NOTE | 2022-02-20 15:26 | P.PN ---
Progress Note - Text Progress Note Date: 02/20/22 Clinical Problems: Bipolar disorder and most recent episode manic with psychotic features, amphetamine use disorder, tobacco use Interim history: I reviewed the medical record and interviewed the patient. She the patient was tearful and dejected today. She complained that "other patients no" her daughter from the streets. She used to derogatory word to describe her daughter. She complained that her daughter is abusing methamphetamine. As during prior encounter she minimized her substance use and mental health problems as well as her need for continued mental health treatment. She has been compliant with prescribed medications. She is less hyper, restless and intrusive. Mental status exam: She presented as a pale casually groomed female wearing casual clothes. She made eye contact and attended to the interview. She had a sad facial expression and cried intermittently during the interview. Her speech was spontaneous and consistent with her affect. Affect was depressed. She did not express suicidal ideation, wishes or homicidal ideation. She did not express feelings of hopelessness, helplessness or worthlessness. She denied experiencing ideas reference, paranoid ideation or delusions. Her thinking was concrete but her associations were coherent and logical. She denied hallucinations did not appear to be responding to internal stimuli. Assessment: The manic symptoms have been displaced by depressive symptoms. Plan: Continue inpatient treatment. Safety precautions. Continue current medications. Encourage participation in therapeutic groups and activities. Evaluate clinical status and response to treatment daily basis.
[2022-02-20] MEDS: traZODone HCL 50 MG TAB PO PRN (19:36)
[2022-02-20] MEDS: PALIPERIDONE 3 MG TAB.ER.24 PO SCH (19:36)
[2022-02-21] MEDS: THIAMINE 100 MG TAB PO SCH (09:10)
[2022-02-21] MEDS: PALIPERIDONE 6 MG TAB.ER.24 PO SCH (09:10)
--- NOTE | 2022-02-21 16:42 | P.PN ---
Progress Note - Text Progress Note Date: 02/21/22 Clinical Problems: Bipolar disorder and most recent episode manic with psychotic features, amphetamine use disorder, tobacco use Interim history: I reviewed the medical record and interviewed the patient. She denied problems or concerns. When we talked about discharge she asked if we could speak with her daughter. Apparently she has had ongoing conflict with her daughter. She denied experiencing thoughts of or suicide. She has had no behavioral problems or shown disruptive behaviors. She has been compliant with prescribed medications. She is less hyper, restless and intrusive on the unit. Mental status exam: She presented as a pale casually groomed female wearing casual clothes. She made eye contact and attended to the interview. She had a blunted facial expression. Her speech was spontaneous and consistent with her affect. Affect was stable. She did not express suicidal ideation, wishes or homicidal ideation. She did not express feelings of hopelessness, helplessness or worthlessness. She denied experiencing ideas reference, paranoid ideation or delusions. Her thinking was concrete but her associations were coherent and logical. She denied hallucinations did not appear to be responding to internal stimuli. Assessment: Overall clinical status has improved from admission with a marked decrease in manic symptoms. Plan: Continue inpatient treatment. Safety precautions. Continue current medications. Encourage participation in therapeutic groups and activities. Evaluate clinical status and response to treatment daily basis.
[2022-02-21] MEDS: PALIPERIDONE 3 MG TAB.ER.24 PO SCH (19:09)
[2022-02-21] MEDS: traZODone HCL 50 MG TAB PO PRN (19:09)
[2022-02-22 07:00] VITALS: BP 129/89; PULSE 80; RESP 16; TEMP 97.5
[2022-02-22] MEDS: PALIPERIDONE 6 MG TAB.ER.24 PO SCH (07:54)
[2022-02-22] MEDS: THIAMINE 100 MG TAB PO SCH (07:54)
--- NOTE | 2022-02-22 12:22 | P.DS ---
Providers Date of admission: 02/13/22 17:42 Attending physician: Nathaniel Romero MD Consults: 02/13/22 17:44 Consult Physician Routine Consulting Provider: Phoenix Vale Consult Reason/Comments: medical management Do you want consulting provider notified?: Yes Primary care physician: Pietro Cullen - Discharge Diagnosis(es) (1) Bipolar disorder with psychotic features Current Visit: No Status: Chronic Priority: High (2) Methamphetamine use disorder, moderate Current Visit: Yes Status: Chronic Priority: High (3) Legal problem Current Visit: Yes Status: Acute Priority: Medium Hospital Course: HISTORY: She is a 47-year-old female was brought to the numbers department from [facility] due to bizarre behavior while in prison and noncompliance with medication. She is currently on an alternate treatment order from her last admission to this unit in January 2022. According to the information provided by prison and family she was arrested for breaking into a home that she thought was "the [place]". She alleged that she enter the home because "voices" were telling her to do so. She relapsed to methamphetamine after admission and did not continue with her psychotropic medications. On presentation she was disheveled. Speech was rambling and incoherent. HOSPITAL COURSE: We admitted her to the psychiatric unit under care of this field underwriter under involuntary status. We completed a comprehensive biopsychosocial assessment. The environmental remediation consultant safety representative completed initial physical exam and medical history and did not diagnose major medical condition. We restarted Invega 6 mg daily and titrated dose to 12 mg a day due to the severity of her disorganization. She was initially noncompliant alleging that she does not have a mental illness and has not required treatment with psychiatric medications. I reminded her of the involuntary treatment order and explained that if she doesn't take medication orally that we will administer them IM. When she resumed her psychotropic medication her overall condition improved. She became more focused and organized. She participated actively in therapeutic groups and activities. She posed no management problem and no episodes of behavioral dyscontrol. Hospitalizations denied that she has a problem with methamphetamine and at hospitalization was related in part to her relapse to methamphetamine. MENTAL STATUS ON DISCHARGE: At time of discharge she presented as a casually groomed 47-year-old female who was pleasant on approach. She made eye contact and attended to interview. She had no distinguishing features or prominent physical abnormalities. She had a bright facial expression. She was alert and oriented to person, place and time. Her speech was spontaneous with normal rate, rhythm and volume. Affect was blunted but stable and appropriate. She denied suicidal ideation and wishes. She denied homicidal ideation. She denied feeling hopeless, helpless or worthless. She did not express ideas reference, paranoid ideation, magical ideation or delusions. Her thinking was concrete but her associations were coherent, logical and goal directed. She denied hallucinations did not appear to be responding to internal stimuli. She is aware of illness but has limited insight or understanding. DISPOSITION: She will return to [facility]. She has an appointment with [facility] on 02/22/2022. Her discharge medications are listed below. Patient Condition at Discharge: Stable Plan - Discharge Summary Discharge Rx Participant: No New Discharge Prescriptions: New Paliperidone [Invega] 6 mg PO BID #60 tab Continue Nicotine Gum (Polacrilex) [Nicorette] 2 mg BUCCAL Q4HR PRN 28 Days PRN Reason: Nicotine Cravings traZODone HCL 150 mg PO HS 30 Days #30 tablet Discontinued Paliperidone [Invega] 6 mg PO HS 30 Days Discharge Medication List Nicotine Gum (Polacrilex) [Nicorette] 2 mg BUCCAL Q4HR PRN 28 Days 02/01/22 [Rx] Paliperidone [Invega] 6 mg PO BID #60 tab 02/22/22 [Rx] traZODone HCL 150 mg PO HS 30 Days #30 tablet 02/22/22 [Rx] Follow up Appointment(s)/Referral(s): [facility] [Outside] - 02/22/22 4:00 pm (Follow-up with [facility]) Pietro Cullen DO [Primary Care Provider] - 1-2 days Patient Instructions/Handouts: How to Stop Smoking (DC), Bipolar Disorder (DC), Brief Psychotic Disorder (DC) Activity/Diet/Wound Care/Special Instructions: Activity and diet as tolerated. Avoid the use of street drugs and alcohol. Take all medications as prescribed. When you are in need of refills on your medications please contact your medical provider and/or outpatient psychiatrist to have this done. Please go to scheduled outpatient appointment for aftercare treatment. If symptoms return or become worse, call the crisis line at and/or go to the nearest emergency room for evaluation Discharge Disposition: OTHER INSTITUTION NOT DEFINED
== END 2022-02-22 12:32 | DRG 885 ==
LOC: EC 15:44 → 3MHU 17:42
PROVIDERS: ADMIT Psychiatry & Neurology Psychiatry; ATTEND Psychiatry & Neurology Psychiatry
DX: F31.9 Bipolar disorder, unspecified (principal); F23 Brief psychotic disorder; F15.90 Other stimulant use, unspecified, uncomplicated; F17.210 Nicotine dependence, cigarettes, uncomplicated; Z65.3 Problems related to other legal circumstances; Z91.14 Patient's other noncompliance with medication regimen; Z91.19 Patient's noncompliance with other medical treatment and regimen; Z20.822 Contact with and (suspected) exposure to COVID-19
CPT/HCPCS: 36415; 80053; 80061; 82075; 83036; 84443; 85027; 87635; 99285

== ENCOUNTER 2022-02-28 06:21 | Emergency (ER) | payer OTHER ==
--- NOTE | 2022-02-28 06:49 | ED ---
General Adult HPI - General Chief complaint: Altered Mental Status Stated complaint: Mental Health Time Seen by Provider: 02/28/22 06:31 Source: patient, RN notes reviewed Mode of arrival: ambulatory Limitations: no limitations - History of Present Illness Initial comments: This a 47-year-old female presents emergency Department for psychiatric evaluation. Patient saw a local gas station in which police arrived patient's been having bizarre behavior. She does have a history of methamphetamine abuse. Patient denies any current drug use. Patient states she wants talk to her " uncle adrian". Patient denies being suicidal but denies been homicidal. No physical complaints. Patient states she is on no medications no known ALLERGIES. - Related Data Previous Rx's Medication Instructions Recorded Nicotine Gum (Polacrilex) 2 mg BUCCAL Q4HR PRN 28 Days 02/01/22 [Nicorette] Paliperidone [Invega] 6 mg PO BID #60 tab 02/22/22 traZODone HCL 150 mg PO HS 30 Days #30 tablet 02/22/22 Allergies Allergy/AdvReac Type Severity Reaction Status Date / Time No Known Allergies Allergy Verified 02/13/22 18:27 Review of Systems ROS Statement: Those systems with pertinent positive or pertinent negative responses have been documented in the HPI. ROS Other: All systems not noted in ROS Statement are negative. Past Medical History Past Medical History: No Reported History History of Any Multi-Drug Resistant Organisms: None Reported Past Surgical History: Orthopedic Surgery Additional Past Surgical History / Comment(s): right ovary removal, rib removal Past Anesthesia/Blood Transfusion Reactions: No Reported Reaction Past Psychological History: No Psychological Hx Reported Smoking Status: Current every day smoker Past Alcohol Use History: Daily Past Drug Use History: Methamphetamine General Exam Limitations: no limitations General appearance: alert, in no apparent distress Head exam: Present: atraumatic, normocephalic, normal inspection Eye exam: Present: normal appearance, PERRL, EOMI. Absent: scleral icterus, conjunctival injection, periorbital swelling ENT exam: Present: normal exam, normal oropharynx, mucous membranes moist Neck exam: Present: normal inspection, full ROM. Absent: tenderness, meningismus, lymphadenopathy Respiratory exam: Present: normal lung sounds bilaterally. Absent: respiratory distress, wheezes, rales, rhonchi, stridor Cardiovascular Exam: Present: regular rate, normal rhythm, normal heart sounds. Absent: systolic murmur, diastolic murmur, rubs, gallop, clicks Neurological exam: Present: alert, oriented X3, CN II-XII intact Psychiatric exam: Present: manic Skin exam: Present: warm, dry, intact, normal color. Absent: rash Course Vital Signs 02/28/22 06:23 Temperature 97.9 F Pulse Rate 106 H Respiratory 16 Rate Blood Pressure 154/81 O2 Sat by Pulse 100 Oximetry Medical Decision Making - Medical Decision Making Patient will be admitted for psychiatric treatment. - Lab Data Lab Results 02/28/22 Range/Units 07:01 Urine Opiates Screen Not Detected (NotDetected) Ur Oxycodone Screen Not Detected (NotDetected) Urine Methadone Screen Not Detected (NotDetected) Ur Propoxyphene Screen Not Detected (NotDetected) Ur Barbiturates Screen Not Detected (NotDetected) U Tricyclic Antidepress Not Detected (NotDetected) Ur Phencyclidine Scrn Not Detected (NotDetected) Ur Amphetamines Screen Detected H (NotDetected) U Methamphetamines Scrn Detected H (NotDetected) U Benzodiazepines Scrn Not Detected (NotDetected) Urine Cocaine Screen Not Detected (NotDetected) U Marijuana (THC) Screen Not Detected (NotDetected) Disposition Clinical Impression: Bipolar disorder, Methamphetamine use disorder, moderate, Acute psychosis Disposition: TRANSFER TO PSYCH HOSP/UNIT Referrals: None,Stated [Primary Care Provider] - 1-2 days Time of Disposition: 08:49
[2022-02-28 08:12] LABS: Amphetamine Screen,Urine Detected (NotDetected); Barbiturate Screen,Urine Not Detected (NotDetected); Benzodiazepines Screen,Urine Not Detected (NotDetected); Cocaine Screen,Urine Not Detected (NotDetected); Methadone Screen, Urine Not Detected (NotDetected); Opiate Screen,Urine Not Detected (NotDetected); Oxycodone Screen, Urine Not Detected (NotDetected); Phencyclidine Screen,Urine Not Detected (NotDetected); Tricyclic Antidepressant,Urine Not Detected (NotDetected); Urn Cannabinoid Scrn Not Detected (NotDetected)
[2022-02-28 10:48] VITALS: BP 128/87; PULSE 78; RESP 18; TEMP 98.1
== END 2022-02-28 10:51 ==
LOC: EC 06:21
DX: F31.9 Bipolar disorder, unspecified (principal); F23 Brief psychotic disorder; F15.20 Other stimulant dependence, uncomplicated; F17.200 Nicotine dependence, unspecified, uncomplicated
CPT/HCPCS: 80306; 82075; 87635

== ENCOUNTER 2022-03-02 12:41 | Emergency (ER) | payer OTHER ==
[2022-03-02 12:46] VITALS: TEMP 98.1
[2022-03-02 13:40] LABS: Appearance,Urine Cloudy (Clear); Bilirubin,Urine Negative (Negative); Blood,Urine Negative (Negative); Color,Urine Yellow; Glucose,Urine (UA) Negative (Negative); Hyaline Casts,Urine 1 /lpf (0-2); Ketones,Urine 1+ (Negative); Leukocyte Esterase,Urine Negative (Negative); Mucus,Urine Rare /hpf; Nitrite,Urine Negative (Negative); Protein,Urine Trace (Negative); RBC,Urine 1 /hpf (0-5); Specific Gravity,Urine 1.014 (1.001-1.035); Squamous Epithelial Cell,Urine 10 /hpf (0-4); WBC,Urine 1 /hpf (0-5)
[2022-03-02 13:50] LABS: Amphetamine Screen,Urine Detected (NotDetected); Benzodiazepines Screen,Urine Not Detected (NotDetected); Cocaine Screen,Urine Not Detected (NotDetected); Methadone Screen, Urine Not Detected (NotDetected); Opiate Screen,Urine Not Detected (NotDetected); Phencyclidine Screen,Urine Not Detected (NotDetected); Tricyclic Antidepressant,Urine Not Detected (NotDetected); Urn Cannabinoid Scrn Not Detected (NotDetected)
[2022-03-02 13:51] LABS: Barbiturate Screen,Urine Not Detected (NotDetected); Oxycodone Screen, Urine Not Detected (NotDetected)
--- NOTE | 2022-03-02 16:07 | ED ---
Psych HPI <Michael Elias - Last Filed: 03/03/22 01:24> - General Source: police, EMS Mode of arrival: EMS <Virgen Dominguez - Last Filed: 03/03/22 15:02> - General Chief Complaint: Psychiatric Symptoms Stated Complaint: Petition Time Seen by Provider: 03/02/22 13:02 - History of Present Illness Initial Comments: 47-year-old female brought into the emergency department by police. She is petitioned. She was found outside running around, rolling on the grass and not making any sense. Patient has had previous episodes in the past of similar behavior. Patient is known to use methamphetamines and have a history of bipolar disorder. Patient was recently just hospitalized on the mental health unit. The patient is unable to provide any history. States that she was brought into the emergency department because her called because she was short of breath. (Virgen Dominguez) - Related Data Previous Rx's Medication Instructions Recorded Paliperidone [Invega] 6 mg PO BID #60 tab 02/22/22 traZODone HCL 150 mg PO HS 30 Days #30 tablet 02/22/22 Allergies Allergy/AdvReac Type Severity Reaction Status Date / Time No Known Allergies Allergy Verified 03/02/22 13:49 Review of Systems ROS Other: All systems not noted in ROS Statement are negative. <Michael Elias - Last Filed: 03/03/22 01:24> ROS Other: All systems not noted in ROS Statement are negative. <Virgen Dominguez - Last Filed: 03/03/22 15:02> ROS Statement: Those systems with pertinent positive or pertinent negative responses have been documented in the HPI. Past Medical History Past Medical History: No Reported History History of Any Multi-Drug Resistant Organisms: None Reported Past Surgical History: Orthopedic Surgery Additional Past Surgical History / Comment(s): right ovary removal, rib removal Past Anesthesia/Blood Transfusion Reactions: No Reported Reaction Past Psychological History: No Psychological Hx Reported Smoking Status: Current every day smoker Past Alcohol Use History: Daily Past Drug Use History: Methamphetamine <Virgen Dominguez - Last Filed: 03/03/22 15:02> General Exam General appearance: alert, in no apparent distress, anxious, other (suspicious) Head exam: Present: atraumatic, normocephalic, normal inspection Eye exam: Present: normal appearance, PERRL, EOMI. Absent: scleral icterus, conjunctival injection, periorbital swelling ENT exam: Present: normal exam, mucous membranes moist Neck exam: Present: normal inspection. Absent: tenderness, meningismus, lymphadenopathy Respiratory exam: Present: normal lung sounds bilaterally. Absent: respiratory distress, wheezes, rales, rhonchi, stridor Cardiovascular Exam: Present: regular rate, normal rhythm, normal heart sounds. Absent: systolic murmur, diastolic murmur, rubs, gallop, clicks GI/Abdominal exam: Present: soft, normal bowel sounds. Absent: distended, tenderness, guarding, rebound, rigid Extremities exam: Present: normal inspection, full ROM, normal capillary refill. Absent: tenderness, pedal edema, joint swelling, calf tenderness Back exam: Present: normal inspection Neurological exam: Present: alert, oriented X3, CN II-XII intact Psychiatric exam: Present: anxious Skin exam: Present: warm, dry, intact, normal color. Absent: rash <Virgen Dominguez - Last Filed: 03/03/22 15:02> Course Vital Signs 03/02/22 03/02/22 12:42 18:18 Temperature 98.1 F Pulse Rate 79 78 Respiratory 20 16 Rate Blood Pressure 136/80 111/73 O2 Sat by Pulse 98 99 Oximetry Medical Decision Making <Virgen Dominguez - Last Filed: 03/03/22 15:02> - Medical Decision Making Upon arrival patient's placed into room 18. She does provide a urine sample. Patient is not intoxicated and is stable for EPS evaluation (Virgen Dominguez) - Lab Data Lab Results 03/02/22 03/02/22 Range/Units 13:13 13:13 Urine Color Yellow Urine Appearance Cloudy H (Clear) Urine pH 7.0 (5.0-8.0) Ur Specific Keyes 1.014 (1.001-1.035) Urine Protein Trace H (Negative) Urine Glucose (UA) Negative (Negative) Urine Ketones 1+ H (Negative) Urine Blood Negative (Negative) Urine Nitrite Negative (Negative) Urine Bilirubin Negative (Negative) Urine Urobilinogen 2.0 (<2.0) mg/dL Ur Leukocyte Esterase Negative (Negative) Urine RBC 1 (0-5) /hpf Urine WBC 1 (0-5) /hpf Ur Squamous Epith Cells 10 H (0-4) /hpf Hyaline Casts 1 (0-2) /lpf Urine Mucus Rare H (None) /hpf Urine HCG, Qual Not Detected (Not Detectd) Urine Opiates Screen Not Detected (NotDetected) Ur Oxycodone Screen Not Detected (NotDetected) Urine Methadone Screen Not Detected (NotDetected) Ur Propoxyphene Screen Not Detected (NotDetected) Ur Barbiturates Screen Not Detected (NotDetected) U Tricyclic Antidepress Not Detected (NotDetected) Ur Phencyclidine Scrn Not Detected (NotDetected) Ur Amphetamines Screen Detected H (NotDetected) U Methamphetamines Scrn Not Detected (NotDetected) U Benzodiazepines Scrn Not Detected (NotDetected) Urine Cocaine Screen Not Detected (NotDetected) U Marijuana (THC) Screen Not Detected (NotDetected) Disposition Is patient prescribed a controlled substance at d/c from ED?: No <Michael Elias B - Last Filed: 03/03/22 01:24> <Virgen Dominguez A - Last Filed: 03/03/22 15:02> Clinical Impression: Bipolar disorder with psychotic features Disposition: HOME SELF-CARE Condition: Fair Instructions (If sedation given, give patient instructions): Bipolar Disorder (ED), Psychotic Disorder (ED) Referrals: None,Stated [Primary Care Provider] - 1-2 days
[2022-03-02] MEDS ORDERED: MELATONIN 5 MG TABLET PO ONE (18:15)
[2022-03-02 18:19] VITALS: BP 111/73; PULSE 78; RESP 16
== END 2022-03-03 01:46 | disposition home or self-care (01) ==
LOC: EC 12:41
DX: F31.64 Bipolar disorder, current episode mixed, severe, with psychotic features (principal); F17.200 Nicotine dependence, unspecified, uncomplicated
CPT/HCPCS: 80306; 81001; 81025; 82075

== ENCOUNTER 2022-03-05 00:46 | Emergency (ER) | payer OTHER ==
[2022-03-05 00:59] VITALS: TEMP 98.5
[2022-03-05 02:21] LABS: Amphetamine Screen,Urine Not Detected (NotDetected); Barbiturate Screen,Urine Not Detected (NotDetected); Benzodiazepines Screen,Urine Not Detected (NotDetected); Cocaine Screen,Urine Not Detected (NotDetected); Methadone Screen, Urine Not Detected (NotDetected); Opiate Screen,Urine Not Detected (NotDetected); Oxycodone Screen, Urine Not Detected (NotDetected); Phencyclidine Screen,Urine Not Detected (NotDetected); Tricyclic Antidepressant,Urine Not Detected (NotDetected); Urn Cannabinoid Scrn Not Detected (NotDetected)
--- NOTE | 2022-03-05 08:29 | ED ---
Psych HPI - General Source: patient Mode of arrival: ambulatory - History of Present Illness MD Complaint: other -: days(s) Associated Psychiatric Symptoms: racing thoughts, delusions Quality: constant Improves With: none Worsens With: none Associated Symptoms: denies other symptoms Treatments Prior to Arrival: none <CherriDeni - Last Filed: 03/05/22 08:26> <Justino Berry - Last Filed: 03/05/22 17:54> - General Chief Complaint: Psychiatric Symptoms Stated Complaint: Mental Health Time Seen by Provider: 03/05/22 01:28 - Related Data Previous Rx's Medication Instructions Recorded Paliperidone [Invega] 6 mg PO BID #60 tab 02/22/22 traZODone HCL 150 mg PO HS 30 Days #30 tablet 02/22/22 Allergies Allergy/AdvReac Type Severity Reaction Status Date / Time No Known Allergies Allergy Verified 03/05/22 14:35 Review of Systems ROS Other: All systems not noted in ROS Statement are negative. Constitutional: Denies: fever, chills Respiratory: Denies: cough, dyspnea Cardiovascular: Denies: chest pain, palpitations, dyspnea on exertion Gastrointestinal: Denies: abdominal pain, nausea, vomiting Genitourinary: Denies: dysuria, hematuria Musculoskeletal: Denies: back pain Skin: Denies: rash Neurological: Denies: headache, weakness, numbness Psychiatric: Reports: anxiety. Denies: depression, auditory hallucinations, visual hallucinations, homicidal thoughts, suicidal thoughts <CherriDeni - Last Filed: 03/05/22 08:26> ROS Other: All systems not noted in ROS Statement are negative. <Justino Berry - Last Filed: 03/05/22 17:54> ROS Statement: Those systems with pertinent positive or pertinent negative responses have been documented in the HPI. Past Medical History Past Medical History: No Reported History History of Any Multi-Drug Resistant Organisms: None Reported Past Surgical History: Orthopedic Surgery Additional Past Surgical History / Comment(s): right ovary removal, rib removal Past Anesthesia/Blood Transfusion Reactions: No Reported Reaction Past Psychological History: No Psychological Hx Reported Smoking Status: Current every day smoker Past Alcohol Use History: Daily Past Drug Use History: Methamphetamine <Deni Harley - Last Filed: 03/05/22 08:26> General Exam Limitations: no limitations General appearance: alert, in no apparent distress Head exam: Present: atraumatic, normocephalic Eye exam: Present: normal appearance. Absent: scleral icterus, conjunctival injection Neck exam: Present: normal inspection Respiratory exam: Present: normal lung sounds bilaterally. Absent: respiratory distress, wheezes, rales, rhonchi, stridor Cardiovascular Exam: Present: regular rate, normal rhythm, normal heart sounds. Absent: systolic murmur, diastolic murmur, rubs, gallop GI/Abdominal exam: Present: soft. Absent: distended, tenderness, guarding, rebound, mass Extremities exam: Present: normal inspection, normal capillary refill. Absent: pedal edema, calf tenderness Back exam: Present: normal inspection Neurological exam: Present: alert Psychiatric exam: Present: anxious, manic. Absent: depressed, agitated, flat affect, homicidal ideation, suicidal ideation Skin exam: Present: warm, dry, intact, normal color. Absent: rash <Deni Harley - Last Filed: 03/05/22 08:26> Course Vital Signs 03/05/22 03/05/22 00:55 07:30 Temperature 98.5 F Pulse Rate 95 92 Respiratory 20 20 Rate Blood Pressure 157/87 148/82 O2 Sat by Pulse 99 99 Oximetry Medical Decision Making <Justino Berry - Last Filed: 03/05/22 17:54> - Medical Decision Making Patient evaluated by EPS and recommends discharge. (Justino Berry) - Lab Data Lab Results 03/05/22 03/05/22 Range/Units 01:47 01:47 Urine HCG, Qual Not Detected (Not Detectd) Urine Opiates Screen Not Detected (NotDetected) Ur Oxycodone Screen Not Detected (NotDetected) Urine Methadone Screen Not Detected (NotDetected) Ur Propoxyphene Screen Not Detected (NotDetected) Ur Barbiturates Screen Not Detected (NotDetected) U Tricyclic Antidepress Not Detected (NotDetected) Ur Phencyclidine Scrn Not Detected (NotDetected) Ur Amphetamines Screen Not Detected (NotDetected) U Methamphetamines Scrn Not Detected (NotDetected) U Benzodiazepines Scrn Not Detected (NotDetected) Urine Cocaine Screen Not Detected (NotDetected) U Marijuana (THC) Screen Not Detected (NotDetected) Disposition <Deni Harley - Last Filed: 03/05/22 08:26> Is patient prescribed a controlled substance at d/c from ED?: No <Justino Berry - Last Filed: 03/05/22 17:54> Clinical Impression: Hallucinations Disposition: HOME SELF-CARE Condition: Fair Referrals: None,Stated [Primary Care Provider] - 1-2 days
[2022-03-05 18:05] VITALS: BP 146/84; PULSE 91; RESP 18
== END 2022-03-05 18:06 | disposition home or self-care (01) ==
LOC: EC 00:46
DX: R44.3 Hallucinations, unspecified (principal); F17.200 Nicotine dependence, unspecified, uncomplicated; Z72.89 Other problems related to lifestyle
CPT/HCPCS: 80306; 81025; 82075; 99284